=== PATIENT | female | born 1935 | race Caucasian/White ===

== ENCOUNTER 2020-07-05 10:51 | Inpatient (IN) | payer MEDICARE ==
[~2020-07-05] VITALS: Ht 162.6 cm; Wt 61.3 kg
--- NOTE | 2020-07-05 11:28 | NUR ---
O2 saturationg dropped to high 80's while on home O2 rate. Pt placed on 4L NC, 95% at this time.
[2020-07-05 11:46] LABS: ABG HCO3 47.1 mmol/L (22.0-26.0); ABG OXYGEN SATURATION 95.9 % (94-97); ABG PCO2 (T) 96.1 mmHg (32.0-45.0); ABG PO2 (T) 84.1 mmHg (75.0-100.0); ALLEN'S TEST POSITIVE; FCOHb 0.7 % (0.0-3.9); FLOW 4 L/min; FMetHb 0.1 % (0.0-1.5); FO2Hb 95.1 % (94-97)
[2020-07-05 11:49] LABS: BASOPHILS % (AUTO) 0.3 % (0-1); EOSINOPHILS % (AUTO) 0.1 % (0-6); HEMATOCRIT 30.9 % (35.0-45.0); LYMPHOCYTES # (AUTO) 0.6 X10'3 (1.1-4.8); LYMPHOCYTES % (AUTO) 9.6 % (21-51); MEAN CORPUSCULAR HEMOGLOBIN 31.3 PG (27.0-31.0); MEAN CORPUSCULAR HGB CONC 32.5 g/dL (33.0-36.5); MEAN CORPUSCULAR VOLUME 96.4 FL (78-98); MEAN PLATELET VOLUME 6.9 FL (7.4-10.4); MONOCYTES # (AUTO) 0.5 X10'3 (0-0.9); MONOCYTES % (AUTO) 8.3 % (2-12); NEUTROPHILS # (AUTO) 4.8 X10'3 (1.8-7.7); NEUTROPHILS % (AUTO) 81.7 % (42-75); PLATELET COUNT 178 X10'3 (140-440); RED BLOOD COUNT 3.21 X10'6 (4.20-5.60); RED CELL DISTRIBUTION WIDTH 13.1 % (11.5-14.5); WHITE BLOOD COUNT 5.9 X10'3 (4.5-11.0)
[2020-07-05 12:48] LABS: ALANINE AMINOTRANSFERASE 77 U/L (12-78); ALBUMIN 3.1 G/DL (3.4-5.0); ALKALINE PHOSPHATASE 128 IU/L (46-116); ANION GAP 0 (8-16); ASPARTATE AMINO TRANSFERASE 24 U/L (10-37); BILIRUBIN,TOTAL 0.5 MG/DL (0.1-1.0); BLOOD UREA NITROGEN 51 MG/DL (7-18); BUN/CREATININE RATIO 27.9 (6.6-38.0); CALCIUM 8.6 MG/DL (8.5-10.1); CHLORIDE 98 MMOL/L (99-107); CREATININE 1.83 MG/DL (0.40-0.90); GLUCOSE 148 MG/DL (70-104); POTASSIUM 5.5 MMOL/L (3.5-5.1); SODIUM 141 MMOL/L (135-145); TOTAL PROTEIN 6.3 G/DL (6.4-8.2); eGFR 26 ML/MIN
[2020-07-05 12:52] LABS: TOTAL CARBON DIOXIDE 43.1 MMOL/L (24-32)
[2020-07-05] MEDS ORDERED: furosemide 10 MG/1 ML 10ml inj IV ONE (13:45)
[2020-07-05 14:45] LABS: ABG BASE EXCESS 18.7 mmol/L (-2.0-2.0); ABG HCO3 46.1 mmol/L (22.0-26.0); ABG OXYGEN SATURATION 93.7 % (94-97); ABG PCO2 (T) 70.6 mmHg (32.0-45.0); ABG PO2 (T) 65.9 mmHg (75.0-100.0); ALLEN'S TEST POSITIVE; FCOHb 0.6 % (0.0-3.9); FMetHb 0.1 % (0.0-1.5); TOTAL HEMOGLOBIN 10.8 G/dl (12.0-16.0)
[2020-07-05] MEDS ORDERED: magnesium 2GM in 50ml NS 50 ML IV PRN (15:40)
[2020-07-05] MEDS ORDERED: ondansetron/PF 4mg/2ml inj IV PRN (15:40)
[2020-07-05] MEDS ORDERED: morphine 2 MG/ML inj. syringe IV PRN (15:40)
[2020-07-05] MEDS ORDERED: magnesium hydroxide 30ml (MOM) UD suspension PO PRN (15:40)
[2020-07-05] MEDS ORDERED: acetaminophen 325mg tablet PO PRN ×2 (15:40)
[2020-07-05] MEDS ORDERED: potassium Cl 20 mEq SR tablet PO PRN ×2 (15:40)
[2020-07-05] MEDS ORDERED: magnesium Cl slow-release 64mg tablet PO PRN (15:40)
[2020-07-05] MEDS ORDERED: mag hydrox/Alum hydrox/simeth 30ml oral suspension PO PRN (15:40)
[2020-07-05] MEDS ORDERED: potassium CL 10mEq/100ml bag 100 ML IV PRN ×2 (15:40)
[2020-07-05] MEDS ORDERED: magnesium 4gm in 100ml NS 100 ML IV PRN (15:40)
[2020-07-05 16:23] LABS: LACTATE DEHYDROGENASE 268 U/L (81-234)
[2020-07-05] MEDS ORDERED: ATOR-2 PO (17:21)
[2020-07-05] MEDS ORDERED: LACT10SO PO (17:21)
[2020-07-05] MEDS ORDERED: DOCU-267 PO (17:21)
[2020-07-05] MEDS ORDERED: APIX5TAB3 PO (17:21)
[2020-07-05] MEDS ORDERED: VORT5TAB PO (17:21)
[2020-07-05] MEDS ORDERED: FURO40TA4 PO (17:21)
[2020-07-05] MEDS ORDERED: MIRT30TA8 PO (17:21)
[2020-07-05] MEDS ORDERED: ALEN70TA80 PO (17:21)
[2020-07-05] MEDS ORDERED: PANT40TA54 PO (17:21)
[2020-07-05] MEDS ORDERED: LEVO15TA5 PO (17:33)
[2020-07-05] MEDS ORDERED: ASPI-611 PO (17:33)
[2020-07-05] MEDS ORDERED: AMIO200T61 PO (17:33)
[2020-07-05] MEDS ORDERED: LACTC PO (17:33)
[2020-07-05] MEDS ORDERED: CALC200T PO (17:33)
[2020-07-05] MEDS ORDERED: POTA20TA19 PO (17:33)
[2020-07-05] MEDS ORDERED: MELA10TA PO (17:33)
--- NOTE | 2020-07-05 17:52 | NUR ---
Patient in room PCU 3027. I have received report from Amarilis MCKENZIE and had the opportunity to ask questions and assume patient care. Patient alert and oriented to room. Bed locked and lowered. Call light within reach. Four person transfer to bed. MRSA swab collected. First set of vitals done. Patient resting comfortably, will continue to monitor.
[2020-07-05 18:00] VITALS: BP 158/73
--- NOTE | 2020-07-05 18:00 | NUR ---
Patient in room PCU 3027. I have received report from Verito MCKENZIE and had the opportunity to ask questions and assume patient care.
--- NOTE | 2020-07-05 18:11 | NUR ---
Problems reprioritized. Patient report given, questions answered & plan of care reviewed with Libra MCKENZIE and Grace MCKENZIE.
--- NOTE | 2020-07-05 18:14 | NUR ---
[place] Medication Administration: For this medication-pass time frame, all medication were reviewed, dispensed, administered and documented per hospital policy by MAGALY Xavier.
--- NOTE | 2020-07-05 18:14 | NUR ---
[place]rient[place] documentation: I have reviewed and agree with all interventions, assessments performed and documented by MAGALY Xavier.
[2020-07-05] MEDS: amiodarone 200mg tablet PO SCH (19:30)
[2020-07-05] MEDS: albuterol 2.5 MG/3 ML nebule NEB SCH ×2 (19:45→23:28)
[2020-07-05] MEDS: K and/or MAG REPLACEMENT MC SCH (20:00)
--- NOTE | 2020-07-05 20:00 | NUR ---
Non Administered Amiodarone Patient stated that she doesn't know what she has taken for medications today and to call her son to find out. Son, Tono, was called about the medications she took today and he stated "She has already taken her Amiodarone, she will still need her other night time medications." Amiodarone was not given.
[2020-07-05] MEDS: furosemide 40mg/4ml inj IV SCH (20:04)
[2020-07-05] MEDS: atorvastatin 20mg tablet PO SCH (20:16)
[2020-07-05] MEDS: Melatonin 3mg tablet PO SCH (20:16)
--- NOTE | 2020-07-05 20:48 | NUR ---
Bipap order request via page PAGER ID: [phone] MESSAGE: [phone] Any Alan, Has Bipap orders for ER but not for our unit. Can we please get orders for her? Libra Fair RN #[id number]
[2020-07-05 22:00] VITALS: BP 113/77
[2020-07-06] VITALS (7 sets, daily range): BP systolic 125–153; BP diastolic 65–96
--- NOTE | 2020-07-06 02:22 | NUR ---
page sent earlier to Baldev, hospitalist changed after start of shift, resent to Long PAGER ID: [phone] MESSAGE: [phone] Any Alan, patient has Bipap orders for ER but not for our unit. Can we please get orders for her? Thank you, Libra Fair, RN #[id number] Long responded and approved orders.
[2020-07-06] MEDS: albuterol 2.5 MG/3 ML nebule NEB SCH ×5 (04:09→20:29)
[2020-07-06 04:55] LABS: BASOPHILS % (AUTO) 0.3 % (0-1); EOSINOPHILS % (AUTO) 0.3 % (0-6); HEMATOCRIT 29.9 % (35.0-45.0); HEMOGLOBIN 9.8 g/dl (12.0-16.0); LYMPHOCYTES # (AUTO) 0.6 X10'3 (1.1-4.8); LYMPHOCYTES % (AUTO) 10.7 % (21-51); MEAN CORPUSCULAR HEMOGLOBIN 31.1 PG (27.0-31.0); MEAN CORPUSCULAR HGB CONC 32.7 g/dL (33.0-36.5); MEAN PLATELET VOLUME 6.5 FL (7.4-10.4); MONOCYTES # (AUTO) 0.6 X10'3 (0-0.9); MONOCYTES % (AUTO) 10.8 % (2-12); NEUTROPHILS # (AUTO) 4.5 X10'3 (1.8-7.7); NEUTROPHILS % (AUTO) 77.9 % (42-75); PLATELET COUNT 183 X10'3 (140-440); RED BLOOD COUNT 3.15 X10'6 (4.20-5.60); RED CELL DISTRIBUTION WIDTH 13.1 % (11.5-14.5); WHITE BLOOD COUNT 5.8 X10'3 (4.5-11.0)
[2020-07-06 05:07] LABS: ALANINE AMINOTRANSFERASE 68 U/L (12-78); ALBUMIN 2.9 G/DL (3.4-5.0); ALKALINE PHOSPHATASE 115 IU/L (46-116); ASPARTATE AMINO TRANSFERASE 21 U/L (10-37); BILIRUBIN,TOTAL 0.6 MG/DL (0.1-1.0); BLOOD UREA NITROGEN 47 MG/DL (7-18); BUN/CREATININE RATIO 26.9 (6.6-38.0); CALCIUM 8.5 MG/DL (8.5-10.1); CHLORIDE 100 MMOL/L (99-107); CREATININE 1.75 MG/DL (0.40-0.90); GLUCOSE 92 MG/DL (70-104); MAGNESIUM 2.3 MG/DL (1.5-2.4); POTASSIUM 4.1 MMOL/L (3.5-5.1); SODIUM 143 MMOL/L (135-145); TOTAL PROTEIN 5.8 G/DL (6.4-8.2); eGFR 28 ML/MIN
[2020-07-06 05:24] LABS: ANION GAP -2 (8-16)
[2020-07-06 05:26] LABS: TOTAL CARBON DIOXIDE 44.6 MMOL/L (24-32)
--- NOTE | 2020-07-06 05:28 | NUR ---
Critical CO2 44.6 PAGER ID: [phone] MESSAGE: [phone] Any Alan: Critical CO2 44.6. yesterday was 43.1 Grace MCKENZIE [phone]
--- NOTE | 2020-07-06 06:00 | NUR ---
[place]rientee documentation: I have reviewed and agree with all interventions, assessments performed and documented by MAGALY Smyth.
--- NOTE | 2020-07-06 06:28 | NUR ---
Problems reprioritized. Patient report given, questions answered & plan of care reviewed with MAGALY Sellers. Patient awake and oriented during report.
--- NOTE | 2020-07-06 06:38 | NUR ---
Problems reprioritized. Patient report given, questions answered & plan of care reviewed with Verito MCKENZIE.
--- NOTE | 2020-07-06 07:08 | NUR ---
Patient in room PCU 3027. I have received report from Nahomy MCKENZIE and had the opportunity to ask questions and assume patient care.
[2020-07-06] MEDS: K and/or MAG REPLACEMENT MC SCH ×2 (08:00→20:00)
[2020-07-06] MEDS: CefTRIAXone 2gm/D5W 50ml BAG 50 ML IV SCH (08:39)
[2020-07-06] MEDS: voritoxetine HBr tablet 5 MG TABLET PO SCH (08:39)
[2020-07-06] MEDS: lactobacillus rhamnosus 10,000 MMU CELLS/CAPSULE PO SCH (08:40)
[2020-07-06] MEDS: pantoprazole 40mg Tablet.DR PO SCH (08:40)
[2020-07-06] MEDS: potassium Cl 20 mEq SR tablet PO SCH (08:40)
[2020-07-06] MEDS: amiodarone 200mg tablet PO SCH (08:40)
[2020-07-06] MEDS: furosemide 40mg/4ml inj IV SCH ×2 (08:40→19:57)
[2020-07-06] MEDS: lactulose 20gm/30ml cup PO SCH (08:41)
--- NOTE | 2020-07-06 09:50 | NUR ---
Dr. carolina at bedside with patient and nurse. New orders to have BSS and continue to have thoracentesis and then CT scan to see if mass is there and then further studies and regiment will be assessed. Code status will be discussed with patients bernice Power MD will be honoring the POLST which is No chest compressions. Will continue to monitor.
--- NOTE | 2020-07-06 11:23 | NUR ---
Page Speech Therapy Re: Any Alan RM 7154M. Pt needing BSS Please and Thank you. Verito MCKENZIE [phone]
--- NOTE | 2020-07-06 13:34 | NUR ---
Consult: Pt previously admitted at [facility] for SOB 3 weeks ago, now admitted at [facility] for worsening SOB. Hx of dementia, A/O x 4. POWDER COAT PAINTER BSS recommends mechanical chopped food and thin liquids. RD internal audit senior manager met with pt at bedside, pt reports poor appetite r/t difficulty breathing. Reports ubw 108 and lost 5 lbs within the last year, current wt 123. Spoke with [facility] RD reporting varying wts 108-120. PO intake this lunch 50% starch, 75% protein; meeting needs. Noted bilateral foot edema 2+ likely r/t CHF. Pt currently lacks a minimum of two criteria for malnutrition. Will continue to monitor for nutrition needs. Addendum: 07/06/20 at [address] Amended: Links added. Addendum: 07/06/20 at [address] RD agree with note
--- NOTE | 2020-07-06 15:15 | NUR ---
Patient has chest tube on right side. Patient tolerated well. Will continue to monitor.
[2020-07-06] MEDS ORDERED: ondansetron 4mg rapidly disintigrating tab PO PRN (15:25)
--- NOTE | 2020-07-06 16:05 | NUR ---
Checked chest tube on patient, output was 1400 bloody fluid. I clamped tube at 1605 and will unclamp at 1805 and reassess drainage. IR Magdalene winston, was contacted and instructed to clamp for an hour and then release. If another 1000 come out to contact IR fire protection engineer and notify KARTIK. Will continue to monitor,
[2020-07-06 16:06] LABS: PLEURAL FLUID PH 7.394 (7.63-7.65)
[2020-07-06 16:07] LABS: BFSOURCE RIGHT PLEURAL FLD; GLUCOSE,BODY FLUID 161 MG/DL; LDH,BODY FLUID 166 U/L; TOTAL PROTEIN,BODY FLUID 2.6 G/DL
[2020-07-06 16:36] LABS: BFAPPEAR BLOODY; LYMPHOCYTES,BODY FLUID 8 %; MONOCYTES,BODY FLUID 25 %; NEUTROPHILS,BODY FLUID 67 %
[2020-07-06 16:37] LABS: BF RBC COUNT 762500 /CU MM; BF WBC COUNT 5000 /CU MM (0-1000); BFCOLOR RED; BFVOLUME 33 ML
--- NOTE | 2020-07-06 17:04 | NUR ---
Unclamped tubing, will continue to monitor output.
--- NOTE | 2020-07-06 18:00 | NUR ---
Patient in room PCU 3027. I have received report from Verito MCKENZIE and had the opportunity to ask questions and assume patient care.
--- NOTE | 2020-07-06 18:21 | NUR ---
Problems reprioritized. Patient report given, questions answered & plan of care reviewed with Nahomy MCKENZIE.
[2020-07-06] MEDS: atorvastatin 20mg tablet PO SCH (19:57)
[2020-07-06] MEDS: apixaban 2.5mg tablet PO SCH (19:58)
[2020-07-06] MEDS: Melatonin 3mg tablet PO SCH (19:58)
--- NOTE | 2020-07-06 22:15 | NUR ---
Patient in room U 3027. I have received report from Verito De Paz RN and had the opportunity to ask questions and assume patient care. Patient awake and alert during report.
[2020-07-07] MEDS: albuterol 2.5 MG/3 ML nebule NEB SCH ×7 (00:01→23:56)
[2020-07-07 02:00] VITALS: BP 154/78
[2020-07-07 05:59] LABS: BASOPHILS % (AUTO) 0.2 % (0-1); EOSINOPHILS % (AUTO) 0 % (0-6); HEMATOCRIT 30.8 % (35.0-45.0); HEMOGLOBIN 10.1 g/dl (12.0-16.0); LYMPHOCYTES # (AUTO) 0.8 X10'3 (1.1-4.8); LYMPHOCYTES % (AUTO) 11.7 % (21-51); MEAN CORPUSCULAR HGB CONC 32.7 g/dL (33.0-36.5); MEAN CORPUSCULAR VOLUME 94.7 FL (78-98); MEAN PLATELET VOLUME 6.7 FL (7.4-10.4); MONOCYTES # (AUTO) 0.7 X10'3 (0-0.9); MONOCYTES % (AUTO) 10.9 % (2-12); NEUTROPHILS # (AUTO) 5.1 X10'3 (1.8-7.7); NEUTROPHILS % (AUTO) 77.2 % (42-75); PLATELET COUNT 165 X10'3 (140-440); RED BLOOD COUNT 3.26 X10'6 (4.20-5.60); RED CELL DISTRIBUTION WIDTH 12.7 % (11.5-14.5); WHITE BLOOD COUNT 6.6 X10'3 (4.5-11.0)
[2020-07-07 06:18] LABS: ALANINE AMINOTRANSFERASE 48 U/L (12-78); ALBUMIN 2.5 G/DL (3.4-5.0); ALBUMIN/GLOBULIN RATIO 0.9 (1.1-1.5); ALKALINE PHOSPHATASE 94 IU/L (46-116); ASPARTATE AMINO TRANSFERASE 15 U/L (10-37); BILIRUBIN,TOTAL 0.5 MG/DL (0.1-1.0); BLOOD UREA NITROGEN 35 MG/DL (7-18); CALCIUM 7.9 MG/DL (8.5-10.1); CHLORIDE 99 MMOL/L (99-107); CREATININE 1.59 MG/DL (0.40-0.90); GLUCOSE 109 MG/DL (70-104); MAGNESIUM 1.9 MG/DL (1.5-2.4); POTASSIUM 3.6 MMOL/L (3.5-5.1); SODIUM 141 MMOL/L (135-145); TOTAL PROTEIN 5.2 G/DL (6.4-8.2); eGFR 31 ML/MIN
--- NOTE | 2020-07-07 06:30 | NUR ---
Patient in room PCU 3027. I have received report from Nahomy MCKENZIE and had the opportunity to ask questions and assume patient care.
--- NOTE | 2020-07-07 06:33 | NUR ---
[place]rientee documentation: I have reviewed and agree with all interventions, assessments performed and documented by MAGALY Smyth.
--- NOTE | 2020-07-07 06:33 | NUR ---
Problems reprioritized. Patient report given, questions answered & plan of care reviewed with Verito MCKENZIE.
[2020-07-07 06:53] LABS: ANION GAP -3 (8-16)
[2020-07-07 06:56] LABS: TOTAL CARBON DIOXIDE 45.4 MMOL/L (24-32)
[2020-07-07 07:00] VITALS: BP 168/81
--- NOTE | 2020-07-07 07:26 | NUR ---
Paged Magu promotional table spacer PAGER ID: [phone] MESSAGE: Re: Any Alan 3027A FYI CO2 critical 45.4 from yesterday 44.6.Thank you Verito MCKENZIE [phone]
[2020-07-07] MEDS: furosemide 40mg/4ml inj IV SCH ×2 (07:40→19:39)
[2020-07-07] MEDS: voritoxetine HBr tablet 5 MG TABLET PO SCH (07:40)
[2020-07-07] MEDS: lactulose 20gm/30ml cup PO SCH (07:42)
[2020-07-07] MEDS: amiodarone 200mg tablet PO SCH (07:42)
[2020-07-07] MEDS: potassium Cl 20 mEq SR tablet PO SCH (07:42)
[2020-07-07] MEDS: pantoprazole 40mg Tablet.DR PO SCH (07:42)
[2020-07-07] MEDS: apixaban 2.5mg tablet PO SCH ×2 (07:42→19:40)
[2020-07-07] MEDS: lactobacillus rhamnosus 10,000 MMU CELLS/CAPSULE PO SCH (07:42)
[2020-07-07] MEDS: CefTRIAXone 2gm/D5W 50ml BAG 50 ML IV SCH (07:43)
[2020-07-07] MEDS: K and/or MAG REPLACEMENT MC SCH ×2 (08:00→20:00)
[2020-07-07 11:00] VITALS: BP 155/79
--- NOTE | 2020-07-07 13:02 | NUR ---
Dr. Jenkins at bedside with patient and nurse. New order to keep K 4.0 and above and Mg 2.0 and above. Plan of care is to implement the continuing draining of chest tube, get Chest CT and schedule biopsy.
[2020-07-07] MEDS: HYDROcodone/acetaminophen 5mg/325mg tablet PO PRN ×2 (13:46→19:38)
[2020-07-07 17:00] VITALS: BP 121/65
[2020-07-07 18:00] VITALS: BP 153/75
--- NOTE | 2020-07-07 18:00 | NUR ---
Patient in room PCU 3027. I have received report from Verito MCKENZIE and had the opportunity to ask questions and assume patient care.
--- NOTE | 2020-07-07 18:04 | NUR ---
Problems reprioritized. Patient report given, questions answered & plan of care reviewed with alton MCKENZIE .
[2020-07-07] MEDS: Melatonin 3mg tablet PO SCH (19:39)
[2020-07-07] MEDS: atorvastatin 20mg tablet PO SCH (19:39)
[2020-07-07 22:00] VITALS: BP 123/67
[2020-07-08 02:00] VITALS: BP 132/62
[2020-07-08] MEDS: HYDROcodone/acetaminophen 5mg/325mg tablet PO PRN ×2 (03:47→19:00)
[2020-07-08] MEDS: albuterol 2.5 MG/3 ML nebule NEB SCH ×5 (04:32→19:18)
--- NOTE | 2020-07-08 05:17 | NUR ---
[place]rientee documentation: I have reviewed and agree with all interventions, assessments performed and documented by MAGALY Smyth.
[2020-07-08 06:19] LABS: BASOPHILS % (AUTO) 0.2 % (0-1); EOSINOPHILS % (AUTO) 0.2 % (0-6); HEMATOCRIT 31.9 % (35.0-45.0); HEMOGLOBIN 10.6 g/dl (12.0-16.0); LYMPHOCYTES # (AUTO) 0.7 X10'3 (1.1-4.8); LYMPHOCYTES % (AUTO) 11.4 % (21-51); MEAN CORPUSCULAR HEMOGLOBIN 31.8 PG (27.0-31.0); MEAN CORPUSCULAR HGB CONC 33.3 g/dL (33.0-36.5); MEAN CORPUSCULAR VOLUME 95.4 FL (78-98); MEAN PLATELET VOLUME 6.4 FL (7.4-10.4); MONOCYTES # (AUTO) 0.7 X10'3 (0-0.9); MONOCYTES % (AUTO) 11.9 % (2-12); NEUTROPHILS # (AUTO) 4.7 X10'3 (1.8-7.7); NEUTROPHILS % (AUTO) 76.3 % (42-75); PLATELET COUNT 159 X10'3 (140-440); RED BLOOD COUNT 3.34 X10'6 (4.20-5.60); RED CELL DISTRIBUTION WIDTH 12.7 % (11.5-14.5); WHITE BLOOD COUNT 6.2 X10'3 (4.5-11.0)
--- NOTE | 2020-07-08 06:27 | NUR ---
[place]rientee documentation: I have reviewed and agree with all interventions, assessments performed and documented by MAGALY Smyth.
--- NOTE | 2020-07-08 06:27 | NUR ---
Problems reprioritized. Patient report given, questions answered & plan of care reviewed with Ester MCKENZIE.
--- NOTE | 2020-07-08 06:32 | NUR ---
Problems reprioritized. Patient report given, questions answered & plan of care reviewed with MAGALY Gonzalez. Patient asleep in no distress during report.
[2020-07-08 06:35] LABS: ALANINE AMINOTRANSFERASE 42 U/L (12-78); ALBUMIN 2.5 G/DL (3.4-5.0); ALBUMIN/GLOBULIN RATIO 0.8 (1.1-1.5); ALKALINE PHOSPHATASE 89 IU/L (46-116); ANION GAP -2 (8-16); ASPARTATE AMINO TRANSFERASE 20 U/L (10-37); BILIRUBIN,TOTAL 0.5 MG/DL (0.1-1.0); BLOOD UREA NITROGEN 28 MG/DL (7-18); CALCIUM 8.1 MG/DL (8.5-10.1); CHLORIDE 99 MMOL/L (99-107); CREATININE 1.47 MG/DL (0.40-0.90); GLUCOSE 103 MG/DL (70-104); MAGNESIUM 2.1 MG/DL (1.5-2.4); POTASSIUM 4.5 MMOL/L (3.5-5.1); SODIUM 141 MMOL/L (135-145); TOTAL PROTEIN 5.5 G/DL (6.4-8.2); eGFR 34 ML/MIN
[2020-07-08 06:39] LABS: TOTAL CARBON DIOXIDE 44.2 MMOL/L (24-32)
--- NOTE | 2020-07-08 06:46 | NUR ---
PAGER ID: [phone] MESSAGE: [id number] Waqas Agarwal - Critical CO2 of 44.2, down from prior day. Lisa MCKENZIE [phone]
[2020-07-08 07:00] VITALS: BP 115/68
--- NOTE | 2020-07-08 07:10 | NUR ---
Patient in room PCU 3027. I have received report from Nahomy MCKENZIE and Libra MCKENZIE and had the opportunity to ask questions and assume patient care.
[2020-07-08] MEDS: K and/or MAG REPLACEMENT MC SCH ×2 (08:00→19:01)
[2020-07-08] MEDS: pantoprazole 40mg Tablet.DR PO SCH (08:30)
[2020-07-08] MEDS: furosemide 40mg/4ml inj IV SCH ×2 (08:30→18:59)
[2020-07-08] MEDS: lactobacillus rhamnosus 10,000 MMU CELLS/CAPSULE PO SCH ×2 (08:30→18:59)
[2020-07-08] MEDS: voritoxetine HBr tablet 5 MG TABLET PO SCH (08:30)
[2020-07-08] MEDS: potassium Cl 20 mEq SR tablet PO SCH (08:30)
[2020-07-08] MEDS: lactulose 20gm/30ml cup PO SCH (08:30)
[2020-07-08] MEDS: apixaban 2.5mg tablet PO SCH ×2 (08:31→18:59)
[2020-07-08] MEDS: amiodarone 200mg tablet PO SCH (08:31)
[2020-07-08] MEDS: CefTRIAXone 2gm/D5W 50ml BAG 50 ML IV SCH (08:31)
[2020-07-08 11:00] VITALS: BP_SYST 109; BP_SYST 88; BP_DIAS 70; BP_DIAS 74
[2020-07-08 15:00] VITALS: BP 134/74
[2020-07-08 18:00] VITALS: BP 152/87
--- NOTE | 2020-07-08 18:00 | NUR ---
Patient in room PCU 3027. I have received report from Ester MCKENZIE and had the opportunity to ask questions and assume patient care.
--- NOTE | 2020-07-08 18:13 | NUR ---
Problems reprioritized. Patient report given, questions answered & plan of care reviewed with Nahomy MCKENZIE. Pt. is eating dinner, offers no complaints and in good spirits.
[2020-07-08] MEDS: Melatonin 3mg tablet PO SCH (19:00)
[2020-07-08] MEDS: atorvastatin 20mg tablet PO SCH (19:01)
[2020-07-08 22:00] VITALS: BP 137/85
[2020-07-09] VITALS (7 sets, daily range): BP systolic 83–158; BP diastolic 45–87
[2020-07-09] MEDS: albuterol 2.5 MG/3 ML nebule NEB SCH ×7 (00:13→23:54)
[2020-07-09 06:26] LABS: BASOPHILS % (AUTO) 0.2 % (0-1); EOSINOPHILS % (AUTO) 0.2 % (0-6); HEMATOCRIT 31.4 % (35.0-45.0); HEMOGLOBIN 10.4 g/dl (12.0-16.0); LYMPHOCYTES # (AUTO) 0.7 X10'3 (1.1-4.8); LYMPHOCYTES % (AUTO) 8.5 % (21-51); MEAN CORPUSCULAR HEMOGLOBIN 31.4 PG (27.0-31.0); MEAN CORPUSCULAR HGB CONC 33.3 g/dL (33.0-36.5); MEAN CORPUSCULAR VOLUME 94.5 FL (78-98); MEAN PLATELET VOLUME 6.5 FL (7.4-10.4); MONOCYTES % (AUTO) 11.8 % (2-12); NEUTROPHILS # (AUTO) 6.8 X10'3 (1.8-7.7); NEUTROPHILS % (AUTO) 79.3 % (42-75); PLATELET COUNT 145 X10'3 (140-440); RED BLOOD COUNT 3.32 X10'6 (4.20-5.60); WHITE BLOOD COUNT 8.6 X10'3 (4.5-11.0)
--- NOTE | 2020-07-09 06:37 | NUR ---
Patient in room PCU 3027. I have received report from Nahomy MCKENZIE and had the opportunity to ask questions and assume patient care.
[2020-07-09 06:40] LABS: ALANINE AMINOTRANSFERASE 39 U/L (12-78); ALBUMIN 2.3 G/DL (3.4-5.0); ALBUMIN/GLOBULIN RATIO 0.7 (1.1-1.5); ALKALINE PHOSPHATASE 88 IU/L (46-116); ANION GAP -5 (8-16); ASPARTATE AMINO TRANSFERASE 15 U/L (10-37); BILIRUBIN,TOTAL 0.5 MG/DL (0.1-1.0); BLOOD UREA NITROGEN 25 MG/DL (7-18); BUN/CREATININE RATIO 16.3 (6.6-38.0); CALCIUM 8.2 MG/DL (8.5-10.1); CHLORIDE 98 MMOL/L (99-107); CREATININE 1.53 MG/DL (0.40-0.90); GLUCOSE 104 MG/DL (70-104); POTASSIUM 4.6 MMOL/L (3.5-5.1); SODIUM 137 MMOL/L (135-145); TOTAL PROTEIN 5.5 G/DL (6.4-8.2); eGFR 32 ML/MIN
--- NOTE | 2020-07-09 06:45 | NUR ---
Problems reprioritized. Patient report given, questions answered & plan of care reviewed with Bhavna MCKENZIE.
[2020-07-09 07:26] LABS: TOTAL CARBON DIOXIDE 43.9 MMOL/L (24-32)
[2020-07-09] MEDS: K and/or MAG REPLACEMENT MC SCH ×2 (08:00→20:00)
[2020-07-09] MEDS: CefTRIAXone 2gm/D5W 50ml BAG 50 ML IV SCH (08:39)
[2020-07-09] MEDS: apixaban 2.5mg tablet PO SCH ×2 (08:39→19:53)
[2020-07-09] MEDS: potassium Cl 20 mEq SR tablet PO SCH (08:39)
[2020-07-09] MEDS: pantoprazole 40mg Tablet.DR PO SCH (08:39)
[2020-07-09] MEDS: lactulose 20gm/30ml cup PO SCH (08:39)
[2020-07-09] MEDS: lactobacillus rhamnosus 10,000 MMU CELLS/CAPSULE PO SCH (08:39)
[2020-07-09] MEDS: voritoxetine HBr tablet 5 MG TABLET PO SCH (08:49)
[2020-07-09] MEDS: amiodarone 200mg tablet PO SCH (08:58)
[2020-07-09] MEDS: furosemide 40mg/4ml inj IV SCH ×2 (08:58→19:53)
--- NOTE | 2020-07-09 11:28 | NUR ---
Patient seen by Dr vicente . orders continue. maalox given for indigestion. will continue to monitor.
--- NOTE | 2020-07-09 18:12 | NUR ---
Problems reprioritized. Patient report given, questions answered & plan of care reviewed with Nahomy MCKENZIE.
[2020-07-09] MEDS: atorvastatin 20mg tablet PO SCH (19:53)
[2020-07-09] MEDS: HYDROcodone/acetaminophen 5mg/325mg tablet PO PRN (19:54)
[2020-07-09] MEDS: Melatonin 3mg tablet PO SCH (19:54)
[2020-07-10] VITALS (7 sets, daily range): BP systolic 106–158; BP diastolic 74–91
[2020-07-10 05:49] LABS: ALANINE AMINOTRANSFERASE 34 U/L (12-78); ALBUMIN 2.2 G/DL (3.4-5.0); ALBUMIN/GLOBULIN RATIO 0.7 (1.1-1.5); ALKALINE PHOSPHATASE 86 IU/L (46-116); ANION GAP -4 (8-16); ASPARTATE AMINO TRANSFERASE 12 U/L (10-37); BASOPHILS % (AUTO) 0.1 % (0-1); BILIRUBIN,TOTAL 0.5 MG/DL (0.1-1.0); BLOOD UREA NITROGEN 26 MG/DL (7-18); BUN/CREATININE RATIO 15.3 (6.6-38.0); CALCIUM 8.2 MG/DL (8.5-10.1); CHLORIDE 97 MMOL/L (99-107); EOSINOPHILS % (AUTO) 0.1 % (0-6); GLUCOSE 105 MG/DL (70-104); HEMATOCRIT 29.7 % (35.0-45.0); HEMOGLOBIN 10.1 g/dl (12.0-16.0); LYMPHOCYTES # (AUTO) 0.6 X10'3 (1.1-4.8); LYMPHOCYTES % (AUTO) 8.7 % (21-51); MAGNESIUM 2.2 MG/DL (1.5-2.4); MEAN CORPUSCULAR HEMOGLOBIN 31.6 PG (27.0-31.0); MEAN CORPUSCULAR VOLUME 93.1 FL (78-98); MEAN PLATELET VOLUME 6.7 FL (7.4-10.4); MONOCYTES # (AUTO) 0.8 X10'3 (0-0.9); MONOCYTES % (AUTO) 11.2 % (2-12); NEUTROPHILS # (AUTO) 5.9 X10'3 (1.8-7.7); NEUTROPHILS % (AUTO) 79.9 % (42-75); PLATELET COUNT 163 X10'3 (140-440); POTASSIUM 3.9 MMOL/L (3.5-5.1); RED BLOOD COUNT 3.19 X10'6 (4.20-5.60); RED CELL DISTRIBUTION WIDTH 13.1 % (11.5-14.5); SODIUM 136 MMOL/L (135-145); TOTAL PROTEIN 5.5 G/DL (6.4-8.2); WHITE BLOOD COUNT 7.4 X10'3 (4.5-11.0); eGFR 28 ML/MIN
[2020-07-10 05:53] LABS: TOTAL CARBON DIOXIDE 43.1 MMOL/L (24-32)
[2020-07-10] MEDS: albuterol 2.5 MG/3 ML nebule NEB SCH ×6 (06:21→23:30)
--- NOTE | 2020-07-10 06:40 | NUR ---
Patient in room PCU 3027. I have received report from SALVADOR MCKENZIE and had the opportunity to ask questions and assume patient care.
[2020-07-10] MEDS: K and/or MAG REPLACEMENT MC SCH ×3 (06:53→14:50)
--- NOTE | 2020-07-10 07:05 | NUR ---
Problems reprioritized. Patient report given, questions answered & plan of care reviewed with Laura MCKENZIE.
[2020-07-10] MEDS: apixaban 2.5mg tablet PO SCH ×2 (07:12→08:21)
--- NOTE | 2020-07-10 07:12 | NUR ---
PER NOC SHIFT NURSE PT PROBABLY GOING FOR BX TODAY. CALLED [facility] TO SEE IF THEY ARE DOING PROCEDURE SHE HAS REGGIE. SPOKE WITH RN , SHE STATES POSSIBLY. WILL HOLD ELILYDIAIS.
[2020-07-10] MEDS: lactulose 20gm/30ml cup PO SCH (08:00)
[2020-07-10] MEDS: voritoxetine HBr tablet 5 MG TABLET PO SCH (08:15)
[2020-07-10] MEDS: amiodarone 200mg tablet PO SCH (08:15)
[2020-07-10] MEDS: CefTRIAXone 2gm/D5W 50ml BAG 50 ML IV SCH (08:15)
[2020-07-10] MEDS: potassium Cl 20 mEq SR tablet PO SCH ×2 (08:15→14:53)
[2020-07-10] MEDS: pantoprazole 40mg Tablet.DR PO SCH (08:15)
[2020-07-10] MEDS: furosemide 40mg/4ml inj IV SCH ×2 (08:16→20:05)
--- NOTE | 2020-07-10 08:44 | NUR ---
SPOKE TO RN FROM [facility]. PT NEEDS 4 DOSES OF ELIQUIS WITH-HELD FOR PROCEDURE (BX). CALLED HOSPITALIST AND ASKED TO HAVE IT DC'D AND RESTARTED AFTER PROCEDURE. SHE STATES, DC ELIQUIS. dC'D MED AND INFORMED CHARGE NURSE AND PATIENT.
--- NOTE | 2020-07-10 09:12 | NUR ---
0800 svn triaged by RT
--- NOTE | 2020-07-10 14:43 | NUR ---
PER DR BARCENAS PT TO BE AT 4.0 DAILY. PT IS 3.9 TODAY WILL REPLACE WITH ONE TIME 20 MEQ CHARGE AGREES.
--- NOTE | 2020-07-10 18:05 | NUR ---
Patient in room PCU 3027. I have received report from Laura MCKENZIE and had the opportunity to ask questions and assume patient care.
--- NOTE | 2020-07-10 18:28 | NUR ---
Problems reprioritized. Patient report given, questions answered & plan of care reviewed with FAREED MCKENZIE.
--- NOTE | 2020-07-10 19:16 | NUR ---
Problems reprioritized. Patient report given, questions answered & plan of care reviewed with Natalee MCKENZIE.
--- NOTE | 2020-07-10 19:19 | NUR ---
Patient in room PCU 3027. I have received report from laura MCKENZIE and had the opportunity to ask questions and assume patient care.
[2020-07-10] MEDS: Melatonin 3mg tablet PO SCH (20:05)
[2020-07-10] MEDS: atorvastatin 20mg tablet PO SCH (20:05)
--- NOTE | 2020-07-11 00:55 | NUR ---
PAGER ID: [phone] MESSAGE: Natalee quach [phone]. Any Alan in rm [id number] is complaining of not being able to sleep. Already gave melatonin and it did not help. Can I get an order for Restoril? Thank you
[2020-07-11] MEDS: temazepam 15mg capsule PO PRN ×2 (01:11→21:01)
[2020-07-11 01:57] VITALS: BP 138/95
[2020-07-11] MEDS: albuterol 2.5 MG/3 ML nebule NEB SCH ×6 (04:00→22:53)
[2020-07-11 06:00] VITALS: BP 143/89
--- NOTE | 2020-07-11 06:21 | NUR ---
Problems reprioritized. Patient report given, questions answered & plan of care reviewed with Lisa MCKENZIE.
--- NOTE | 2020-07-11 06:27 | NUR ---
Patient in room PCU 3027. I have received report from MAGALY Albright and had the opportunity to ask questions and assume patient care.
[2020-07-11] MEDS: furosemide 40mg/4ml inj IV SCH ×2 (08:50→20:57)
[2020-07-11] MEDS: amiodarone 200mg tablet PO SCH (08:51)
[2020-07-11] MEDS: CefTRIAXone 2gm/D5W 50ml BAG 50 ML IV SCH (08:51)
[2020-07-11] MEDS: voritoxetine HBr tablet 5 MG TABLET PO SCH (08:52)
[2020-07-11] MEDS: lactobacillus rhamnosus 10,000 MMU CELLS/CAPSULE PO SCH (08:52)
[2020-07-11] MEDS: pantoprazole 40mg Tablet.DR PO SCH (08:52)
[2020-07-11] MEDS: potassium Cl 20 mEq SR tablet PO SCH (08:52)
[2020-07-11 09:17] LABS: BASOPHILS % (AUTO) 0.3 % (0-1); EOSINOPHILS % (AUTO) 0.1 % (0-6); HEMATOCRIT 31.2 % (35.0-45.0); HEMOGLOBIN 10.4 g/dl (12.0-16.0); LYMPHOCYTES # (AUTO) 0.7 X10'3 (1.1-4.8); LYMPHOCYTES % (AUTO) 10.1 % (21-51); MEAN CORPUSCULAR HEMOGLOBIN 31.4 PG (27.0-31.0); MEAN CORPUSCULAR HGB CONC 33.5 g/dL (33.0-36.5); MEAN CORPUSCULAR VOLUME 93.8 FL (78-98); MEAN PLATELET VOLUME 6.3 FL (7.4-10.4); MONOCYTES # (AUTO) 0.7 X10'3 (0-0.9); MONOCYTES % (AUTO) 10.6 % (2-12); NEUTROPHILS # (AUTO) 5.1 X10'3 (1.8-7.7); NEUTROPHILS % (AUTO) 78.9 % (42-75); PLATELET COUNT 184 X10'3 (140-440); RED BLOOD COUNT 3.32 X10'6 (4.20-5.60); RED CELL DISTRIBUTION WIDTH 12.9 % (11.5-14.5); WHITE BLOOD COUNT 6.5 X10'3 (4.5-11.0)
--- NOTE | 2020-07-11 09:35 | NUR ---
PAGER ID: [phone] MESSAGE: [id number] Any Alan in a-fib that is not new but HR trends are up at 120-140's. IRVIN Gonzalez RN
[2020-07-11 09:43] LABS: ALANINE AMINOTRANSFERASE 33 U/L (12-78); ALBUMIN 2.2 G/DL (3.4-5.0); ALBUMIN/GLOBULIN RATIO 0.6 (1.1-1.5); ALKALINE PHOSPHATASE 86 IU/L (46-116); ANION GAP -2 (8-16); ASPARTATE AMINO TRANSFERASE 14 U/L (10-37); BILIRUBIN,TOTAL 0.5 MG/DL (0.1-1.0); BLOOD UREA NITROGEN 23 MG/DL (7-18); BUN/CREATININE RATIO 15.4 (6.6-38.0); CALCIUM 8.4 MG/DL (8.5-10.1); CHLORIDE 97 MMOL/L (99-107); CREATININE 1.49 MG/DL (0.40-0.90); GLUCOSE 133 MG/DL (70-104); SODIUM 138 MMOL/L (135-145); TOTAL PROTEIN 5.8 G/DL (6.4-8.2); eGFR 33 ML/MIN
[2020-07-11 09:47] LABS: TOTAL CARBON DIOXIDE 42.7 MMOL/L (24-32)
[2020-07-11 11:00] VITALS: BP 143/86
--- NOTE | 2020-07-11 12:46 | NUR ---
Initial: Pt presented to ER with worsening SOB; admitted for Afib and respiratory failure. Per MD progress note pt has lung mass and is pending biopsy. Per ENTERPRISE APPLICATION ANALYST recs on 07/09, continue mechanical chopped and thin liquids. Pt PO intake 50-75% on heart healthy diet, meeting estimated nutrient needs. Last BM 07/09. No nutrition concerns at this time, will continue to monitor. Recs: 1) Continue heart healthy diet, mechanical soft chop food per ST recs 2) Routine bowel care 3) Scaled wt per Rx Addendum: 07/11/20 at [address] Amended: Links added. Addendum: 07/11/20 at [address] I have reviewed and agree with note by Registered Private Duty Nurse. Keke Humphries RD
[2020-07-11] MEDS: HYDROcodone/acetaminophen 5mg/325mg tablet PO PRN (14:01)
[2020-07-11 15:00] VITALS: BP 151/76
--- NOTE | 2020-07-11 18:30 | NUR ---
Patient in room PCU 3027. I have received report from MAGALY Gonzalez and had the opportunity to ask questions and assume patient care. Patient resting in bed, no signs of distress. Safety measures in place, bed in low and locked position. Call light and personal items within reach. Will continue to monitor throughout shift.
--- NOTE | 2020-07-11 18:31 | NUR ---
Problems reprioritized. Patient report given, questions answered & plan of care reviewed with Miguelito MCKENZIE. Patient is sleeping comfortably in no distress.
[2020-07-11] MEDS: K and/or MAG REPLACEMENT MC SCH (20:00)
[2020-07-11] MEDS: atorvastatin 20mg tablet PO SCH (20:58)
[2020-07-11] MEDS: Melatonin 3mg tablet PO SCH (21:00)
[2020-07-11 22:00] VITALS: BP 148/89
[2020-07-12] VITALS (18 sets, daily range): BP systolic 132–164; BP diastolic 65–100
[2020-07-12] MEDS: albuterol 2.5 MG/3 ML nebule NEB SCH ×6 (03:43→23:32)
--- NOTE | 2020-07-12 04:40 | NUR ---
Paged Dr. Ball. RE: Rosanna Alan RM [id number]. Pt. in afib, rate has been in 110's to 120's, now increasing to 130's-140's, once to 168 with any movement. Miguelito [phone]
[2020-07-12] MEDS ORDERED: diltiazem 5mg/ml 5ml inj. IV ONE (05:00)
[2020-07-12] MEDS: diltiazem-NS 100mg/100ml 100 ML IV SCH ×2 (05:47→20:52)
--- NOTE | 2020-07-12 07:00 | NUR ---
Problems reprioritized. Patient report given, questions answered & plan of care reviewed with MAGALY Rosado. Patient resting in bed. Cardizem drip running at 5ml/hr. Safety measures in place, bed in low and locked position. Call light and personal items within reach. will continue to monitor for remainder of shift.
--- NOTE | 2020-07-12 07:06 | NUR ---
Patient in room PCU 3027. I have received report from Miguelito MCKENZIE and had the opportunity to ask questions and assume patient care.
[2020-07-12] MEDS: amiodarone 200mg tablet PO SCH (07:23)
[2020-07-12] MEDS: potassium Cl 20 mEq SR tablet PO SCH (07:23)
[2020-07-12] MEDS: lactobacillus rhamnosus 10,000 MMU CELLS/CAPSULE PO SCH (07:23)
[2020-07-12] MEDS: CefTRIAXone 2gm/D5W 50ml BAG 50 ML IV SCH (07:24)
[2020-07-12] MEDS: pantoprazole 40mg Tablet.DR PO SCH (07:24)
[2020-07-12] MEDS: furosemide 40mg/4ml inj IV SCH ×2 (07:24→20:52)
[2020-07-12] MEDS: voritoxetine HBr tablet 5 MG TABLET PO SCH (07:24)
[2020-07-12] MEDS: K and/or MAG REPLACEMENT MC SCH ×2 (08:00→20:00)
[2020-07-12 12:48] LABS: ALBUMIN 2.2 G/DL (3.4-5.0); ANION GAP 1 (8-16); BLOOD UREA NITROGEN 21 MG/DL (7-18); BUN/CREATININE RATIO 15.3 (6.6-38.0); CALCIUM 8.5 MG/DL (8.5-10.1); CHLORIDE 99 MMOL/L (99-107); CREATININE 1.37 MG/DL (0.40-0.90); GLUCOSE 91 MG/DL (70-104); POTASSIUM 4.1 MMOL/L (3.5-5.1); SODIUM 142 MMOL/L (135-145); eGFR 37 ML/MIN
[2020-07-12 12:49] LABS: TOTAL CARBON DIOXIDE 41.8 MMOL/L (24-32)
[2020-07-12] MEDS ORDERED: iohexol 300mg/ml 100ml inj. ONE (16:24)
--- NOTE | 2020-07-12 18:09 | NUR ---
Problems reprioritized. Patient report given, questions answered & plan of care reviewed with Ashleigh MCKENZIE.
--- NOTE | 2020-07-12 18:30 | NUR ---
Patient in room PCU 3027. I have received report from MAGALY Robles and had the opportunity to ask questions and assume patient care. Safety measures in place, bed in low and locked position. Call light and personal items within reach. Will continue to monitor throughout shift.
[2020-07-12] MEDS: temazepam 15mg capsule PO PRN (20:52)
[2020-07-12] MEDS: atorvastatin 20mg tablet PO SCH (20:53)
[2020-07-12] MEDS: Melatonin 3mg tablet PO SCH (21:00)
[2020-07-13] VITALS (14 sets, daily range): BP systolic 115–176; BP diastolic 58–89
[2020-07-13] MEDS: albuterol 2.5 MG/3 ML nebule NEB SCH ×5 (03:17→19:51)
--- NOTE | 2020-07-13 06:12 | NUR ---
Patient in room PCU 3027. I have received report from Miguelito MCKENZIE and had the opportunity to ask questions and assume patient care.
--- NOTE | 2020-07-13 06:37 | NUR ---
Problems reprioritized. Patient report given, questions answered & plan of care reviewed with MAGALY Robles. Patient resting in bed, no signs of distress. Cardizem running at 5ml/hr. Lines patent. On 2L nasal cannula. Voids in commode, no bowel movement, day shift nurse aware. VSS. Safety measures in place, bed in low and locked position. Call light and personal items within reach. Will continue to monitor for remainder of shift.
[2020-07-13] MEDS: furosemide 40mg/4ml inj IV SCH ×2 (07:32→20:18)
[2020-07-13] MEDS: K and/or MAG REPLACEMENT MC SCH ×2 (08:00→20:12)
[2020-07-13] MEDS: amiodarone 200mg tablet PO SCH (08:06)
[2020-07-13] MEDS: potassium Cl 20 mEq SR tablet PO SCH (08:06)
[2020-07-13] MEDS: pantoprazole 40mg Tablet.DR PO SCH (08:06)
[2020-07-13] MEDS: voritoxetine HBr tablet 5 MG TABLET PO SCH (08:06)
[2020-07-13] MEDS: CefTRIAXone 2gm/D5W 50ml BAG 50 ML IV SCH (08:06)
[2020-07-13] MEDS: lactobacillus rhamnosus 10,000 MMU CELLS/CAPSULE PO SCH (08:06)
--- NOTE | 2020-07-13 08:42 | NUR ---
received orders to continue daily labs of CBC and CMP per dr. vicente
--- NOTE | 2020-07-13 10:26 | NUR ---
PAGER ID: [phone] MESSAGE: [id number] Any Alan: Son Tono Alan would like for you to give him a call at your convenience ph . Thanks Margaret
[2020-07-13] MEDS: diltiazem-NS 100mg/100ml 100 ML IV SCH (14:17)
[2020-07-13 16:56] LABS: ABG BASE EXCESS 15.5 mmol/L (-2.0-2.0); ABG HCO3 41.1 mmol/L (22.0-26.0); ABG OXYGEN SATURATION 96.3 % (94-97); ABG PCO2 (T) 55.8 mmHg (32.0-45.0); ABG PO2 (T) 86.6 mmHg (75.0-100.0); FCOHb 0.3 % (0.0-3.9); FLOW 2 L/min; FMetHb 0.3 % (0.0-1.5); FO2Hb 95.7 % (94-97); TOTAL HEMOGLOBIN 10.8 G/dl (12.0-16.0)
--- NOTE | 2020-07-13 18:27 | NUR ---
Problems reprioritized. Patient report given, questions answered & plan of care reviewed with Mendez MCKENZIE.
[2020-07-13] MEDS: atorvastatin 20mg tablet PO SCH (20:18)
[2020-07-13] MEDS: temazepam 15mg capsule PO PRN (20:18)
[2020-07-13] MEDS: Melatonin 3mg tablet PO SCH (20:18)
[2020-07-14] VITALS (7 sets, daily range): BP systolic 125–145; BP diastolic 43–70
[2020-07-14] MEDS: albuterol 2.5 MG/3 ML nebule NEB SCH ×7 (03:11→23:17)
[2020-07-14 05:49] LABS: ALANINE AMINOTRANSFERASE 29 U/L (12-78); ALBUMIN 2.1 G/DL (3.4-5.0); ALBUMIN/GLOBULIN RATIO 0.6 (1.1-1.5); ALKALINE PHOSPHATASE 78 IU/L (46-116); ANION GAP -1 (8-16); ASPARTATE AMINO TRANSFERASE 19 U/L (10-37); BILIRUBIN,TOTAL 0.4 MG/DL (0.1-1.0); BLOOD UREA NITROGEN 22 MG/DL (7-18); BUN/CREATININE RATIO 14.8 (6.6-38.0); CHLORIDE 97 MMOL/L (99-107); CREATININE 1.49 MG/DL (0.40-0.90); GLUCOSE 102 MG/DL (70-104); POTASSIUM 3.8 MMOL/L (3.5-5.1); SODIUM 138 MMOL/L (135-145); TOTAL PROTEIN 5.6 G/DL (6.4-8.2); eGFR 33 ML/MIN
[2020-07-14 05:54] LABS: TOTAL CARBON DIOXIDE 41.9 MMOL/L (24-32)
--- NOTE | 2020-07-14 05:56 | NUR ---
Page Sent PAGER ID: [phone] MESSAGE: pt Raymondort [phone] in [id number] here for pleural effusions. critical CO2 of 41.9. - Mendez [phone]
[2020-07-14 06:21] LABS: BASOPHILS % (AUTO) 0.4 % (0-1); EOSINOPHILS % (AUTO) 0.1 % (0-6); HEMATOCRIT 29.3 % (35.0-45.0); HEMOGLOBIN 10.1 g/dl (12.0-16.0); LYMPHOCYTES # (AUTO) 0.7 X10'3 (1.1-4.8); LYMPHOCYTES % (AUTO) 11.2 % (21-51); MEAN CORPUSCULAR HEMOGLOBIN 31.7 PG (27.0-31.0); MEAN CORPUSCULAR HGB CONC 34.4 g/dL (33.0-36.5); MEAN CORPUSCULAR VOLUME 92.1 FL (78-98); MEAN PLATELET VOLUME 6.2 FL (7.4-10.4); MONOCYTES # (AUTO) 0.8 X10'3 (0-0.9); MONOCYTES % (AUTO) 13.6 % (2-12); NEUTROPHILS # (AUTO) 4.5 X10'3 (1.8-7.7); NEUTROPHILS % (AUTO) 74.7 % (42-75); PLATELET COUNT 221 X10'3 (140-440); RED BLOOD COUNT 3.18 X10'6 (4.20-5.60); RED CELL DISTRIBUTION WIDTH 12.9 % (11.5-14.5)
--- NOTE | 2020-07-14 06:21 | NUR ---
Problems reprioritized. Patient report given, questions answered & plan of care reviewed with Dahlia MCKENZIE.
--- NOTE | 2020-07-14 06:23 | NUR ---
Patient in room PCU 3027. I have received report from Mendez MCKENZIE and had the opportunity to ask questions and assume patient care.
--- NOTE | 2020-07-14 06:44 | NUR ---
Patient in room PCU 3027. I have received report from Mendez MCKENZIE and had the opportunity to ask questions and assume patient care.
[2020-07-14] MEDS: amiodarone 200mg tablet PO SCH (08:37)
[2020-07-14] MEDS: furosemide 40mg/4ml inj IV SCH ×2 (08:37→20:16)
[2020-07-14] MEDS: potassium Cl 20 mEq SR tablet PO SCH (08:37)
[2020-07-14] MEDS: pantoprazole 40mg Tablet.DR PO SCH (08:37)
[2020-07-14] MEDS: lactobacillus rhamnosus 10,000 MMU CELLS/CAPSULE PO SCH (08:37)
[2020-07-14] MEDS: voritoxetine HBr tablet 5 MG TABLET PO SCH (08:46)
[2020-07-14] MEDS: K and/or MAG REPLACEMENT MC SCH ×2 (08:49→20:31)
[2020-07-14] MEDS: diltiazem-NS 100mg/100ml 100 ML IV SCH (12:24)
--- NOTE | 2020-07-14 18:56 | NUR ---
Patient in room PCU 3027. I have received report from DOMENIC MCKENZIE and had the opportunity to ask questions and assume patient care.
[2020-07-14] MEDS: diltiazem 30mg tablet PO SCH (20:16)
[2020-07-14] MEDS: temazepam 15mg capsule PO PRN (20:16)
[2020-07-14] MEDS: atorvastatin 20mg tablet PO SCH (20:19)
[2020-07-14] MEDS: Melatonin 3mg tablet PO SCH (20:32)
[2020-07-15] MEDS: diltiazem 30mg tablet PO SCH ×4 (01:17→20:36)
[2020-07-15 02:00] VITALS: BP 140/77
[2020-07-15] MEDS: albuterol 2.5 MG/3 ML nebule NEB SCH ×5 (02:45→19:35)
--- NOTE | 2020-07-15 06:03 | NUR ---
Student documentation: I have reviewed and agree with all interventions, assessments performed and documented by Tali WATSON. Student Medication Administration: For this medication-pass time frame, all medication were reviewed, dispensed, administered and documented per hospital policy by Tali Guevara RN.
--- NOTE | 2020-07-15 06:24 | NUR ---
Problems reprioritized. Patient report given, questions answered & plan of care reviewed with Dahlia MCKENZIE.
[2020-07-15 06:53] LABS: BASOPHILS % (AUTO) 0.4 % (0-1); EOSINOPHILS % (AUTO) 0.1 % (0-6); HEMATOCRIT 30.6 % (35.0-45.0); HEMOGLOBIN 10.1 g/dl (12.0-16.0); LYMPHOCYTES # (AUTO) 0.6 X10'3 (1.1-4.8); LYMPHOCYTES % (AUTO) 9.5 % (21-51); MEAN CORPUSCULAR HEMOGLOBIN 30.5 PG (27.0-31.0); MEAN CORPUSCULAR HGB CONC 33.1 g/dL (33.0-36.5); MEAN PLATELET VOLUME 6.5 FL (7.4-10.4); MONOCYTES # (AUTO) 0.9 X10'3 (0-0.9); MONOCYTES % (AUTO) 12.9 % (2-12); NEUTROPHILS # (AUTO) 5.1 X10'3 (1.8-7.7); NEUTROPHILS % (AUTO) 77.1 % (42-75); PLATELET COUNT 237 X10'3 (140-440); RED BLOOD COUNT 3.32 X10'6 (4.20-5.60); RED CELL DISTRIBUTION WIDTH 13.4 % (11.5-14.5); WHITE BLOOD COUNT 6.6 X10'3 (4.5-11.0)
[2020-07-15 07:13] LABS: ALANINE AMINOTRANSFERASE 33 U/L (12-78); ALBUMIN 2.1 G/DL (3.4-5.0); ALBUMIN/GLOBULIN RATIO 0.6 (1.1-1.5); ALKALINE PHOSPHATASE 79 IU/L (46-116); ANION GAP 3 (8-16); ASPARTATE AMINO TRANSFERASE 24 U/L (10-37); BILIRUBIN,TOTAL 0.5 MG/DL (0.1-1.0); BLOOD UREA NITROGEN 20 MG/DL (7-18); BUN/CREATININE RATIO 14.7 (6.6-38.0); CALCIUM 8.1 MG/DL (8.5-10.1); CHLORIDE 99 MMOL/L (99-107); CREATININE 1.36 MG/DL (0.40-0.90); GLUCOSE 94 MG/DL (70-104); POTASSIUM 3.7 MMOL/L (3.5-5.1); SODIUM 142 MMOL/L (135-145); TOTAL CARBON DIOXIDE 39.9 MMOL/L (24-32); TOTAL PROTEIN 5.7 G/DL (6.4-8.2); eGFR 37 ML/MIN
[2020-07-15] MEDS: potassium Cl 20 mEq SR tablet PO SCH (07:59)
[2020-07-15] MEDS: lactobacillus rhamnosus 10,000 MMU CELLS/CAPSULE PO SCH (07:59)
[2020-07-15] MEDS: pantoprazole 40mg Tablet.DR PO SCH (07:59)
[2020-07-15] MEDS: amiodarone 200mg tablet PO SCH (07:59)
[2020-07-15] MEDS: furosemide 40mg/4ml inj IV SCH ×2 (07:59→20:36)
[2020-07-15] MEDS: voritoxetine HBr tablet 5 MG TABLET PO SCH (08:00)
[2020-07-15] MEDS: K and/or MAG REPLACEMENT MC SCH ×2 (08:00→20:00)
[2020-07-15] MEDS ORDERED: diltiazem 30mg tablet PO ONE (08:40)
[2020-07-15 18:00] VITALS: BP 142/83
--- NOTE | 2020-07-15 18:19 | NUR ---
Problems reprioritized. Patient report given, questions answered & plan of care reviewed with Bertha MCKENZIE.
--- NOTE | 2020-07-15 18:30 | NUR ---
Patient in room PCU 3027. I have received report from DOMENIC and had the opportunity to ask questions and assume patient care.
[2020-07-15] MEDS: atorvastatin 20mg tablet PO SCH (20:36)
[2020-07-15] MEDS: temazepam 15mg capsule PO PRN (20:36)
[2020-07-15] MEDS: Melatonin 3mg tablet PO SCH (20:43)
[2020-07-15 21:24] LABS: GLUCOSE,BODY FLUID 157 MG/DL; LDH,BODY FLUID 185 U/L
[2020-07-15 21:48] LABS: BFAPPEAR HAZY
[2020-07-15 21:49] LABS: BF RBC COUNT 5200 /CU MM; BF WBC COUNT 1100 /CU MM (0-1000); BFCOLOR OTHER; BFVOLUME 20 ML; NEUTROPHILS,BODY FLUID 2 %
[2020-07-15 21:50] LABS: LYMPHOCYTES,BODY FLUID 96 %; MONOCYTES,BODY FLUID 2 %
[2020-07-15 22:00] VITALS: BP 131/72
[2020-07-16 02:00] VITALS: BP 124/58
[2020-07-16] MEDS: albuterol 2.5 MG/3 ML nebule NEB SCH ×7 (02:12→22:56)
[2020-07-16] MEDS: diltiazem 30mg tablet PO SCH ×4 (02:58→19:55)
[2020-07-16 06:00] VITALS: BP 129/63
[2020-07-16 06:23] LABS: BASOPHILS % (AUTO) 0.4 % (0-1); EOSINOPHILS % (AUTO) 0.1 % (0-6); HEMATOCRIT 29.7 % (35.0-45.0); HEMOGLOBIN 9.9 g/dl (12.0-16.0); LYMPHOCYTES # (AUTO) 0.7 X10'3 (1.1-4.8); LYMPHOCYTES % (AUTO) 10.2 % (21-51); MEAN CORPUSCULAR HEMOGLOBIN 30.6 PG (27.0-31.0); MEAN CORPUSCULAR HGB CONC 33.4 g/dL (33.0-36.5); MEAN CORPUSCULAR VOLUME 91.6 FL (78-98); MEAN PLATELET VOLUME 6.3 FL (7.4-10.4); MONOCYTES # (AUTO) 0.6 X10'3 (0-0.9); MONOCYTES % (AUTO) 9.9 % (2-12); NEUTROPHILS # (AUTO) 5.2 X10'3 (1.8-7.7); NEUTROPHILS % (AUTO) 79.4 % (42-75); PLATELET COUNT 281 X10'3 (140-440); RED BLOOD COUNT 3.24 X10'6 (4.20-5.60); RED CELL DISTRIBUTION WIDTH 13.2 % (11.5-14.5); WHITE BLOOD COUNT 6.5 X10'3 (4.5-11.0)
--- NOTE | 2020-07-16 06:26 | NUR ---
Problems reprioritized. Patient report given, questions answered & plan of care reviewed with CATARINA.
--- NOTE | 2020-07-16 06:35 | NUR ---
Patient in room PCU 3027. I have received report from Clara MCKENZIE and had the opportunity to ask questions and assume patient care. Patient asleep in bed and resting. All immediate needs met at this time.
[2020-07-16 06:44] LABS: ALANINE AMINOTRANSFERASE 34 U/L (12-78); ALBUMIN 2.1 G/DL (3.4-5.0); ALBUMIN/GLOBULIN RATIO 0.6 (1.1-1.5); ALKALINE PHOSPHATASE 79 IU/L (46-116); ANION GAP 2 (8-16); ASPARTATE AMINO TRANSFERASE 21 U/L (10-37); BILIRUBIN,TOTAL 0.5 MG/DL (0.1-1.0); BLOOD UREA NITROGEN 21 MG/DL (7-18); BUN/CREATININE RATIO 13.3 (6.6-38.0); CALCIUM 8.1 MG/DL (8.5-10.1); CHLORIDE 98 MMOL/L (99-107); CREATININE 1.58 MG/DL (0.40-0.90); GLUCOSE 110 MG/DL (70-104); POTASSIUM 4.1 MMOL/L (3.5-5.1); SODIUM 139 MMOL/L (135-145); TOTAL CARBON DIOXIDE 39.5 MMOL/L (24-32); TOTAL PROTEIN 5.8 G/DL (6.4-8.2); eGFR 31 ML/MIN
--- NOTE | 2020-07-16 07:15 | NUR ---
Patient in room PCU 3027. I have received report from MAGALY Elizabeth and had the opportunity to ask questions and assume patient care.
[2020-07-16] MEDS: K and/or MAG REPLACEMENT MC SCH ×2 (08:00→20:00)
[2020-07-16] MEDS: voritoxetine HBr tablet 5 MG TABLET PO SCH (08:00)
[2020-07-16] MEDS: amiodarone 200mg tablet PO SCH (08:54)
[2020-07-16] MEDS: pantoprazole 40mg Tablet.DR PO SCH (08:54)
[2020-07-16] MEDS: furosemide 40mg/4ml inj IV SCH ×2 (08:54→19:54)
[2020-07-16] MEDS: lactobacillus rhamnosus 10,000 MMU CELLS/CAPSULE PO SCH (08:54)
[2020-07-16] MEDS: potassium Cl 20 mEq SR tablet PO SCH (08:55)
--- NOTE | 2020-07-16 10:31 | NUR ---
Chest xray ordered for 07/17/20 @ [address] Betancourt
[2020-07-16 11:00] VITALS: BP 122/68
--- NOTE | 2020-07-16 11:21 | NUR ---
Chest tube removed. Restart Eliquis 5 mg BID.
[2020-07-16 15:00] VITALS: BP 126/71
--- NOTE | 2020-07-16 15:28 | NUR ---
Reassessment: Pt was having high output in chest tube, however as output decreased PO intake noticeably increased and tube was removed today. Per TIG WELDER recs on 07/16, continue mechanical chopped and thin liquids. Pt PO intake 75% on heart healthy/mechanical chopped diet, meeting estimated nutrient needs. Last BM 07/15, received MoM 07/13. No nutrition concerns at this time, will continue to monitor. Recs: 1) Continue heart healthy diet, mechanical soft chop food per ST recs 2) Routine bowel care 3) Scaled wt per Rx Addendum: 07/16/20 at [address] Amended: Links added. Addendum: 07/16/20 at [address] RD agree with equine intern note
[2020-07-16 18:00] VITALS: BP 128/64
--- NOTE | 2020-07-16 18:26 | NUR ---
[place] documentation: I have reviewed and agree with all interventions, assessments performed and documented by MAGALY Arteaga. [place] Medication Administration: For this medication-pass time frame, all medication were reviewed, dispensed, administered and documented per hospital policy by MAGALY Arteaga.
--- NOTE | 2020-07-16 18:39 | NUR ---
Problems reprioritized. Patient report given, questions answered & plan of care reviewed with Josie MCKENZIE. Patient stable at transfer of care.
[2020-07-16] MEDS: apixaban 2.5mg tablet PO SCH (19:55)
[2020-07-16] MEDS: Melatonin 3mg tablet PO SCH (21:00)
[2020-07-16] MEDS: temazepam 15mg capsule PO PRN (21:15)
[2020-07-16] MEDS: atorvastatin 20mg tablet PO SCH (21:15)
[2020-07-16 22:00] VITALS: BP 134/68
[2020-07-17 02:00] VITALS: BP 141/70
[2020-07-17] MEDS: diltiazem 30mg tablet PO SCH (02:00)
[2020-07-17] MEDS: albuterol 2.5 MG/3 ML nebule NEB SCH ×3 (03:10→11:33)
[2020-07-17 05:23] LABS: BASOPHILS % (AUTO) 0.4 % (0-1); EOSINOPHILS % (AUTO) 0.2 % (0-6); HEMOGLOBIN 9.4 g/dl (12.0-16.0); LYMPHOCYTES # (AUTO) 0.7 X10'3 (1.1-4.8); LYMPHOCYTES % (AUTO) 12.2 % (21-51); MEAN CORPUSCULAR HEMOGLOBIN 30.7 PG (27.0-31.0); MEAN CORPUSCULAR HGB CONC 33.4 g/dL (33.0-36.5); MEAN PLATELET VOLUME 6.2 FL (7.4-10.4); MONOCYTES # (AUTO) 0.5 X10'3 (0-0.9); NEUTROPHILS # (AUTO) 4.7 X10'3 (1.8-7.7); NEUTROPHILS % (AUTO) 78.2 % (42-75); PLATELET COUNT 266 X10'3 (140-440); RED BLOOD COUNT 3.05 X10'6 (4.20-5.60); RED CELL DISTRIBUTION WIDTH 13.3 % (11.5-14.5)
[2020-07-17 05:46] LABS: ALANINE AMINOTRANSFERASE 32 U/L (12-78); ALBUMIN/GLOBULIN RATIO 0.6 (1.1-1.5); ALKALINE PHOSPHATASE 77 IU/L (46-116); ANION GAP 0 (8-16); ASPARTATE AMINO TRANSFERASE 23 U/L (10-37); BILIRUBIN,TOTAL 0.4 MG/DL (0.1-1.0); BLOOD UREA NITROGEN 24 MG/DL (7-18); BUN/CREATININE RATIO 13.3 (6.6-38.0); CHLORIDE 100 MMOL/L (99-107); CREATININE 1.81 MG/DL (0.40-0.90); GLUCOSE 116 MG/DL (70-104); POTASSIUM 3.8 MMOL/L (3.5-5.1); SODIUM 139 MMOL/L (135-145); TOTAL CARBON DIOXIDE 38.6 MMOL/L (24-32); TOTAL PROTEIN 5.5 G/DL (6.4-8.2); eGFR 27 ML/MIN
--- NOTE | 2020-07-17 07:02 | NUR ---
Patient in room PCU 3027. I have received report from Josie MCKENZIE and had the opportunity to ask questions and assume patient care.
[2020-07-17 07:07] VITALS: BP 123/61
[2020-07-17] MEDS: K and/or MAG REPLACEMENT MC SCH (08:00)
[2020-07-17] MEDS ORDERED: diltiazem CD 120mg capsule (once-daily) PO SCH (08:00)
[2020-07-17] MEDS: apixaban 2.5mg tablet PO SCH (08:28)
[2020-07-17] MEDS: voritoxetine HBr tablet 5 MG TABLET PO SCH (08:28)
[2020-07-17] MEDS: furosemide 40mg/4ml inj IV SCH (08:28)
[2020-07-17] MEDS: amiodarone 200mg tablet PO SCH (08:29)
[2020-07-17] MEDS: pantoprazole 40mg Tablet.DR PO SCH (08:29)
[2020-07-17] MEDS: potassium Cl 20 mEq SR tablet PO SCH (08:30)
[2020-07-17] MEDS: lactobacillus rhamnosus 10,000 MMU CELLS/CAPSULE PO SCH (08:30)
--- NOTE | 2020-07-17 09:51 | NUR ---
F/u 07/17: Pt PO 75-100% avg meals improving past 3 days meeting needs. Advanced to regular texture w/ thin liquids per DISTRIBUTION OPERATIONS SUPERVISOR recs. LBM 07/15. No nutrition concerns at this time. Will continue to monitor. Recs: 1) Continue heart healthy diet; regular texture/thin liquids per ST recs 2) Routine bowel care 3) Scaled wt per Rx Addendum: 07/17/20 at [address] Amended: Links added.
[2020-07-17] MEDS ORDERED: APIX2.5T PO (10:40)
[2020-07-17 11:00] VITALS: BP 130/66
--- NOTE | 2020-07-17 15:16 | NUR ---
Pt stable for discharge per MD orders. All discharge instructions reviewed with patient and all questions answered. PIV discontimued, cannula intact. Telemetry discontinued, telemarketer supervisor notified. All belongings collected and sent with patient. New prescriptions called into pharmacy of choice. Patient wheeled to lobby by staff, picked up by family member in private vehicle.
[2020-08-02] MEDS ORDERED: NIFE-34 PO (16:52)
[2020-08-02] MEDS ORDERED: APIX5TAB3 PO (16:52)
[2020-08-02] MEDS ORDERED: CARV25TA3 PO (16:52)
[2020-08-02] MEDS ORDERED: DILT-36 PO (16:52)
[2020-08-02] MEDS ORDERED: LOSA100T57 PO (16:52)
[2020-08-02] MEDS ORDERED: POTA20TA19 PO (17:06)
[2020-08-02] MEDS ORDERED: METO50TA17 PO (17:06)
[2020-08-02] MEDS ORDERED: HYDR-3965 PO (17:06)
[2020-08-02] MEDS ORDERED: BISA10SU62 RC (17:06)
== END 2020-07-17 13:05 | disposition home health service (06) | DRG 186 ==
LOC: ER 10:52 → ED HOLD 15:36 → PCU 3S 17:48
PROVIDERS: ADMIT Internal Medicine; ATTEND Internal Medicine
PROC: 5A09357 Assistance with Respiratory Ventilation, Less than 24 Consecutive Hours, Continuous Positive Airway Pressure (ICD-10-PCS; 2020-07-05)
PROC: 0W9930Z Drainage of Right Pleural Cavity with Drainage Device, Percutaneous Approach (ICD-10-PCS; principal; 2020-07-06)
PROC: BW241ZZ Computerized Tomography (CT Scan) of Chest and Abdomen using Low Osmolar Contrast (ICD-10-PCS; 2020-07-12)
DX: J94.2 Hemothorax (principal); J96.02 Acute respiratory failure with hypercapnia; I13.0 Hypertensive heart and chronic kidney disease with heart failure and stage 1 through stage 4 chronic kidney disease, or unspecified chronic kidney disease; N17.9 Acute kidney failure, unspecified; I50.32 Chronic diastolic (congestive) heart failure; J98.19 Other pulmonary collapse; J91.8 Pleural effusion in other conditions classified elsewhere; D63.8 Anemia in other chronic diseases classified elsewhere; E11.22 Type 2 diabetes mellitus with diabetic chronic kidney disease; F41.8 Other specified anxiety disorders; E78.5 Hyperlipidemia, unspecified; F03.90 Unspecified dementia, unspecified severity, without behavioral disturbance, psychotic disturbance, mood disturbance, and anxiety; I48.0 Paroxysmal atrial fibrillation; K59.00 Constipation, unspecified; N18.30 Chronic kidney disease, stage 3 unspecified; Z77.22 Contact with and (suspected) exposure to environmental tobacco smoke (acute) (chronic); Z79.01 Long term (current) use of anticoagulants; Z79.899 Other long term (current) drug therapy; Z86.711 Personal history of pulmonary embolism
CPT/HCPCS: 32557; 36415; 36600; 71045; 71260; 80048; 80053; 82803; 82945; 83605; 83615; 83735; 83880; 83986; 84145; 84157; 84439; 84443; 84484; 85018; 85025; 87040; 87070; 87075; 87081; 87102; 89051; 92508; 92616; 93005; 94640; 94660; 94760; 96374; 97110; 97116; 97161; 97530; 99285; G0378; J0696; J1940; J3490; Q9967

== ENCOUNTER 2020-07-24 11:50 | Inpatient (IN) | payer MEDICARE ==
[~2020-07-24] VITALS: Ht 154.9 cm; Wt 46.4 kg
[~2020-07-24 11:50] MED LIST: ALEN70TA80 PO; AMIO200T61 PO; APIX2.5T PO; ATOR-2 PO; CALC200T PO; DOCU-267 PO; FURO40TA4 PO; LACT10SO PO; LACTC PO; LEVO15TA5 PO; MELA10TA PO; MIRT30TA8 PO; PANT40TA54 PO; POTA20TA19 PO; VORT5TAB PO
[2020-07-24 12:30] LABS: BASOPHILS % (AUTO) 0.2 % (0-1); EOSINOPHILS % (AUTO) 0 % (0-6); HEMATOCRIT 33.1 % (35.0-45.0); HEMOGLOBIN 10.9 g/dl (12.0-16.0); LYMPHOCYTES # (AUTO) 0.5 X10'3 (1.1-4.8); MEAN CORPUSCULAR HEMOGLOBIN 30.3 PG (27.0-31.0); MEAN CORPUSCULAR HGB CONC 32.9 g/dL (33.0-36.5); MEAN PLATELET VOLUME 6.2 FL (7.4-10.4); MONOCYTES # (AUTO) 0.6 X10'3 (0-0.9); MONOCYTES % (AUTO) 6.9 % (2-12); NEUTROPHILS % (AUTO) 87.9 % (42-75); PLATELET COUNT 384 X10'3 (140-440); RED CELL DISTRIBUTION WIDTH 13.6 % (11.5-14.5)
[2020-07-24] MEDS ORDERED: furosemide 40mg/4ml inj IV ONE (12:40)
[2020-07-24] MEDS ORDERED: diltiazem 5mg/ml 5ml inj. IV ONE ×3 (12:40→22:25)
[2020-07-24] MEDS ORDERED: furosemide 10 MG/1 ML 10ml inj IV ONE (12:40)
[2020-07-24 12:46] LABS: ALANINE AMINOTRANSFERASE 216 U/L (12-78); ALBUMIN 2.7 G/DL (3.4-5.0); ALBUMIN/GLOBULIN RATIO 0.7 (1.1-1.5); ALKALINE PHOSPHATASE 170 IU/L (46-116); ANION GAP 3 (8-16); ASPARTATE AMINO TRANSFERASE 146 U/L (10-37); BILIRUBIN,TOTAL 0.4 MG/DL (0.1-1.0); BLOOD UREA NITROGEN 43 MG/DL (7-18); BUN/CREATININE RATIO 25.1 (6.6-38.0); CALCIUM 9.3 MG/DL (8.5-10.1); CHLORIDE 98 MMOL/L (99-107); CREATININE 1.71 MG/DL (0.40-0.90); GLUCOSE 195 MG/DL (70-104); SODIUM 137 MMOL/L (135-145); TOTAL CARBON DIOXIDE 35.9 MMOL/L (24-32); TOTAL PROTEIN 6.8 G/DL (6.4-8.2); eGFR 28 ML/MIN
[2020-07-24] MEDS ORDERED: ASPI-611 PO (13:24)
[2020-07-24] MEDS ORDERED: APIX2.5T PO (13:27)
[2020-07-24] MEDS ORDERED: diltiazem-D5W 125mg/125ml 125 ML IV SCH (14:15)
[2020-07-24] MEDS ORDERED: magnesium hydroxide 30ml (MOM) UD suspension PO PRN (14:35)
[2020-07-24] MEDS: furosemide 20 MG/2 ML vial IV SCH ×3 (14:35→23:44)
[2020-07-24] MEDS ORDERED: acetaminophen 325mg tablet PO PRN ×2 (14:35)
[2020-07-24] MEDS ORDERED: mag hydrox/Alum hydrox/simeth 30ml oral suspension PO PRN (14:35)
[2020-07-24] MEDS ORDERED: ondansetron/PF 4mg/2ml inj IV PRN (14:35)
[2020-07-24] MEDS ORDERED: morphine 2 MG/ML inj. syringe IV PRN ×2 (14:35)
--- NOTE | 2020-07-24 15:14 | NUR ---
PT URINATED 300 ML URINE .DIRECTOR OF EDUCATION AT BEDSIDE .
--- NOTE | 2020-07-24 16:35 | NUR ---
notified steph pierce regarding pt hr 110-120 on pcu dosing cardiazem drip infusing at 5 mg/hr .pa okayed to titrate to 10 mg/hr .pt bp is high steph pierce aware about that .pt cardiazem drip titrated as per steph pierce's orders.
[2020-07-24] MEDS ORDERED: diltiazem CD 180mg cap (once-daily) PO ONE (17:20)
--- NOTE | 2020-07-24 17:20 | NUR ---
spoke to dr rios regarding pt hr informed that pt hr was in 110 -120 and pt bld pressure is 171/108 and i contacted steph pierce changed the iv cardizem drip to 10 mg/hr anf hr after that is 102-108 rgt now and also informed that pt recevied 40 mg of lasix when pt came to er as per md mathew the dose of lasix rgt now nad give cardiazem cd 180 mg cap 1 time dose rgt now and then half an hour later d/c the cardizem drip .will follow the orders.
[2020-07-24 18:00] VITALS: BP 173/97
--- NOTE | 2020-07-24 18:30 | NUR ---
Patient in room MED 313. I have received report from Kane MCKENZIE from ER and had the opportunity to ask questions and assume patient care.
[2020-07-24] MEDS: apixaban 2.5mg tablet PO SCH (20:18)
[2020-07-24] MEDS: Melatonin 3mg tablet PO SCH (20:18)
[2020-07-24] MEDS: mirtazapine 15mg tablet PO SCH (20:19)
[2020-07-24] MEDS: docusate sod 100mg capsule PO SCH (20:19)
[2020-07-24 22:00] VITALS: BP 179/103
--- NOTE | 2020-07-24 22:24 | NUR ---
Spoke to Dr. Venegas at 2220 regarding patietn continual heart rate in the 110-120s and her blood pressure above 170/90 s. ordered 1 time dose of Cardizem 10 mg IV.
--- NOTE | 2020-07-24 22:54 | NUR ---
aware of sustaining hypertension
[2020-07-25] VITALS (11 sets, daily range): BP systolic 119–184; BP diastolic 57–100
[2020-07-25] MEDS ORDERED: diltiazem-D5W 125mg/125ml 125 ML IV SCH (00:50)
[2020-07-25 05:49] LABS: BASOPHILS % (AUTO) 0.3 % (0-1); EOSINOPHILS % (AUTO) 0.1 % (0-6); HEMOGLOBIN 10.7 g/dl (12.0-16.0); LYMPHOCYTES # (AUTO) 0.4 X10'3 (1.1-4.8); LYMPHOCYTES % (AUTO) 5.2 % (21-51); MEAN CORPUSCULAR HEMOGLOBIN 30.5 PG (27.0-31.0); MEAN CORPUSCULAR HGB CONC 33.4 g/dL (33.0-36.5); MEAN CORPUSCULAR VOLUME 91.1 FL (78-98); MEAN PLATELET VOLUME 6.1 FL (7.4-10.4); MONOCYTES # (AUTO) 0.6 X10'3 (0-0.9); MONOCYTES % (AUTO) 8.5 % (2-12); NEUTROPHILS # (AUTO) 6.5 X10'3 (1.8-7.7); NEUTROPHILS % (AUTO) 85.9 % (42-75); PLATELET COUNT 356 X10'3 (140-440); RED BLOOD COUNT 3.51 X10'6 (4.20-5.60); RED CELL DISTRIBUTION WIDTH 13.8 % (11.5-14.5); WHITE BLOOD COUNT 7.5 X10'3 (4.5-11.0)
[2020-07-25 06:13] LABS: ALANINE AMINOTRANSFERASE 189 U/L (12-78); ALBUMIN 2.6 G/DL (3.4-5.0); ALBUMIN/GLOBULIN RATIO 0.7 (1.1-1.5); ALKALINE PHOSPHATASE 159 IU/L (46-116); ANION GAP 2 (8-16); ASPARTATE AMINO TRANSFERASE 81 U/L (10-37); BILIRUBIN,TOTAL 0.4 MG/DL (0.1-1.0); BLOOD UREA NITROGEN 38 MG/DL (7-18); BUN/CREATININE RATIO 23.5 (6.6-38.0); CALCIUM 8.9 MG/DL (8.5-10.1); CHLORIDE 102 MMOL/L (99-107); CREATININE 1.62 MG/DL (0.40-0.90); GLUCOSE 143 MG/DL (70-104); POTASSIUM 4.2 MMOL/L (3.5-5.1); SODIUM 143 MMOL/L (135-145); TOTAL PROTEIN 6.5 G/DL (6.4-8.2); eGFR 30 ML/MIN
--- NOTE | 2020-07-25 07:45 | NUR ---
Patient in room MED 313. I have received report from benjamin alcazar and had the opportunity to ask questions and assume patient care.
[2020-07-25] MEDS: atorvastatin 20mg tablet PO SCH (08:32)
[2020-07-25] MEDS: furosemide 20 MG/2 ML vial IV SCH ×3 (08:32→23:23)
[2020-07-25] MEDS: aspirin 81mg tab.chew PO SCH (08:33)
[2020-07-25] MEDS: lactobacillus rhamnosus 10,000 MMU CELLS/CAPSULE PO SCH (08:33)
[2020-07-25] MEDS: pantoprazole 40mg Tablet.DR PO SCH (08:33)
[2020-07-25] MEDS: lactulose 20gm/30ml cup PO SCH (08:34)
[2020-07-25] MEDS: metoprolol succinate 25mg (24-HOUR) SR. Tablet PO SCH (08:34)
[2020-07-25] MEDS: apixaban 2.5mg tablet PO SCH ×2 (08:34→20:31)
[2020-07-25] MEDS: docusate sod 100mg capsule PO SCH ×2 (08:34→20:31)
[2020-07-25] MEDS: amiodarone 200mg tablet PO SCH (09:39)
[2020-07-25] MEDS: voritoxetine HBr tablet 5 MG TABLET PO SCH (14:57)
[2020-07-25] MEDS ORDERED: ondansetron 4mg rapidly disintigrating tab PO PRN (16:00)
--- NOTE | 2020-07-25 18:25 | NUR ---
Problems reprioritized. Patient report given, questions answered & plan of care reviewed with benjamin Ennis.
--- NOTE | 2020-07-25 18:34 | NUR ---
Patient in room MED 313. I have received report from Marjorie MCKENZIE and had the opportunity to ask questions and assume patient care.
[2020-07-25] MEDS ORDERED: furosemide 40mg/4ml inj IV ONE (19:15)
[2020-07-25] MEDS: Melatonin 3mg tablet PO SCH (20:31)
[2020-07-25] MEDS: mirtazapine 15mg tablet PO SCH (20:31)
[2020-07-26 02:00] VITALS: BP 152/78
[2020-07-26 06:00] VITALS: BP 166/97
--- NOTE | 2020-07-26 06:28 | NUR ---
Patient in room MED 313. I have received report from MAGALY Pedro and had the opportunity to ask questions and assume patient care.
[2020-07-26 06:31] LABS: BASOPHILS % (AUTO) 0.5 % (0-1); EOSINOPHILS % (AUTO) 0.4 % (0-6); HEMATOCRIT 30.2 % (35.0-45.0); HEMOGLOBIN 10.1 g/dl (12.0-16.0); LYMPHOCYTES # (AUTO) 0.5 X10'3 (1.1-4.8); LYMPHOCYTES % (AUTO) 7.1 % (21-51); MEAN CORPUSCULAR HEMOGLOBIN 30.8 PG (27.0-31.0); MEAN CORPUSCULAR HGB CONC 33.3 g/dL (33.0-36.5); MEAN CORPUSCULAR VOLUME 92.4 FL (78-98); MEAN PLATELET VOLUME 6.1 FL (7.4-10.4); MONOCYTES # (AUTO) 0.6 X10'3 (0-0.9); MONOCYTES % (AUTO) 9.5 % (2-12); NEUTROPHILS # (AUTO) 5.5 X10'3 (1.8-7.7); NEUTROPHILS % (AUTO) 82.5 % (42-75); PLATELET COUNT 302 X10'3 (140-440); RED BLOOD COUNT 3.27 X10'6 (4.20-5.60); RED CELL DISTRIBUTION WIDTH 13.7 % (11.5-14.5); WHITE BLOOD COUNT 6.6 X10'3 (4.5-11.0)
--- NOTE | 2020-07-26 06:34 | NUR ---
Problems reprioritized. Patient report given, questions answered & plan of care reviewed with Marjorie MCKENZIE.
[2020-07-26 06:36] LABS: ALBUMIN 2.3 G/DL (3.4-5.0); ANION GAP 0 (8-16); BLOOD UREA NITROGEN 33 MG/DL (7-18); BUN/CREATININE RATIO 21.3 (6.6-38.0); CALCIUM 8.3 MG/DL (8.5-10.1); CHLORIDE 102 MMOL/L (99-107); CREATININE 1.55 MG/DL (0.40-0.90); GLUCOSE 117 MG/DL (70-104); POTASSIUM 4.2 MMOL/L (3.5-5.1); SODIUM 143 MMOL/L (135-145); eGFR 32 ML/MIN
[2020-07-26 06:43] LABS: TOTAL CARBON DIOXIDE 40.8 MMOL/L (24-32)
--- NOTE | 2020-07-26 07:00 | NUR ---
Dr. Alvarado paged with of critical lab,CO2=40.8,no order taken
[2020-07-26 08:21] LABS: ALANINE AMINOTRANSFERASE 179 U/L (12-78); ALBUMIN/GLOBULIN RATIO 0.6 (1.1-1.5); ALKALINE PHOSPHATASE 138 IU/L (46-116); ASPARTATE AMINO TRANSFERASE 63 U/L (10-37); BILIRUBIN,DIRECT 0.1 MG/DL (0-0.3); BILIRUBIN,TOTAL 0.3 MG/DL (0.1-1.0); TOTAL PROTEIN 5.9 G/DL (6.4-8.2)
[2020-07-26] MEDS: aspirin 81mg tab.chew PO SCH (08:25)
[2020-07-26] MEDS: pantoprazole 40mg Tablet.DR PO SCH (08:25)
[2020-07-26] MEDS: docusate sod 100mg capsule PO SCH ×2 (08:25→21:12)
[2020-07-26] MEDS: furosemide 20 MG/2 ML vial IV SCH ×2 (08:25→16:00)
[2020-07-26] MEDS: metoprolol succinate 25mg (24-HOUR) SR. Tablet PO SCH (08:26)
[2020-07-26] MEDS: atorvastatin 20mg tablet PO SCH (08:26)
[2020-07-26] MEDS: amiodarone 200mg tablet PO SCH (08:26)
[2020-07-26] MEDS: lactobacillus rhamnosus 10,000 MMU CELLS/CAPSULE PO SCH (08:26)
[2020-07-26] MEDS: voritoxetine HBr tablet 5 MG TABLET PO SCH (08:26)
[2020-07-26] MEDS: apixaban 2.5mg tablet PO SCH ×2 (08:26→21:12)
[2020-07-26] MEDS: lactulose 20gm/30ml cup PO SCH (08:36)
[2020-07-26 10:00] VITALS: BP 159/79
[2020-07-26 14:00] VITALS: BP 159/78
[2020-07-26 18:00] VITALS: BP 146/80
--- NOTE | 2020-07-26 18:00 | NUR ---
Patient in room MED 313. I have received report from Marjorie MCKENZIE and had the opportunity to ask questions and assume patient care.
--- NOTE | 2020-07-26 18:30 | NUR ---
Problems reprioritized. Patient report given, questions answered & plan of care reviewed with .MAGALY WAKEFIELD
--- NOTE | 2020-07-26 18:45 | NUR ---
PAGER ID: [phone] MESSAGE: [phone] pt Waqas. Please address code status, Pt is A&O x4, has a POLST signed recently on 06/15/2020 for limited code status. Has order in [email or web address] for DNR. Thank you [phone]
[2020-07-26] MEDS: Melatonin 3mg tablet PO SCH (21:12)
[2020-07-26] MEDS: mirtazapine 15mg tablet PO SCH (21:12)
[2020-07-26 22:00] VITALS: BP 151/80
[2020-07-27] VITALS (12 sets, daily range): BP systolic 94–153; BP diastolic 7–84
[2020-07-27] MEDS: furosemide 20 MG/2 ML vial IV SCH ×2 (00:21→08:07)
[2020-07-27 06:03] LABS: BASOPHILS % (AUTO) 0.4 % (0-1); EOSINOPHILS % (AUTO) 0.1 % (0-6); HEMATOCRIT 32.1 % (35.0-45.0); HEMOGLOBIN 10.7 g/dl (12.0-16.0); LYMPHOCYTES # (AUTO) 0.6 X10'3 (1.1-4.8); LYMPHOCYTES % (AUTO) 7.9 % (21-51); MEAN CORPUSCULAR HGB CONC 33.4 g/dL (33.0-36.5); MEAN CORPUSCULAR VOLUME 92.9 FL (78-98); MEAN PLATELET VOLUME 6.3 FL (7.4-10.4); MONOCYTES # (AUTO) 0.6 X10'3 (0-0.9); MONOCYTES % (AUTO) 8.4 % (2-12); NEUTROPHILS # (AUTO) 6.1 X10'3 (1.8-7.7); NEUTROPHILS % (AUTO) 83.2 % (42-75); PLATELET COUNT 301 X10'3 (140-440); RED BLOOD COUNT 3.45 X10'6 (4.20-5.60); RED CELL DISTRIBUTION WIDTH 13.8 % (11.5-14.5); WHITE BLOOD COUNT 7.3 X10'3 (4.5-11.0)
[2020-07-27 06:24] LABS: ALBUMIN 2.3 G/DL (3.4-5.0); ANION GAP 1 (8-16); BLOOD UREA NITROGEN 36 MG/DL (7-18); BUN/CREATININE RATIO 18.8 (6.6-38.0); CALCIUM 8.2 MG/DL (8.5-10.1); CHLORIDE 100 MMOL/L (99-107); CREATININE 1.91 MG/DL (0.40-0.90); GLUCOSE 113 MG/DL (70-104); POTASSIUM 4.4 MMOL/L (3.5-5.1); SODIUM 141 MMOL/L (135-145); TOTAL CARBON DIOXIDE 39.8 MMOL/L (24-32); eGFR 25 ML/MIN
[2020-07-27] MEDS: pantoprazole 40mg Tablet.DR PO SCH (08:04)
[2020-07-27] MEDS: apixaban 2.5mg tablet PO SCH ×2 (08:04→20:47)
[2020-07-27] MEDS: amiodarone 200mg tablet PO SCH (08:04)
[2020-07-27] MEDS: diltiazem CD 120mg capsule (once-daily) PO SCH (08:04)
[2020-07-27] MEDS: lactobacillus rhamnosus 10,000 MMU CELLS/CAPSULE PO SCH (08:05)
[2020-07-27] MEDS: voritoxetine HBr tablet 5 MG TABLET PO SCH (08:05)
[2020-07-27] MEDS: docusate sod 100mg capsule PO SCH ×2 (08:05→20:47)
[2020-07-27] MEDS: HYDROcodone/acetaminophen 5mg/325mg tablet PO PRN ×2 (08:05→16:12)
[2020-07-27] MEDS: aspirin 81mg tab.chew PO SCH (08:05)
[2020-07-27] MEDS: metoprolol succinate 25mg (24-HOUR) SR. Tablet PO SCH (08:06)
[2020-07-27] MEDS: lactulose 20gm/30ml cup PO SCH (08:06)
[2020-07-27] MEDS: atorvastatin 20mg tablet PO SCH (08:06)
[2020-07-27] MEDS ORDERED: furosemide 20 MG/2 ML vial IV ONE (13:45)
--- NOTE | 2020-07-27 18:00 | NUR ---
Patient in room MED 313. I have received report from JAVI RN and had the opportunity to ask questions and assume patient care.
[2020-07-27] MEDS ORDERED: furosemide 40mg/4ml inj IV SCH (20:00)
[2020-07-27] MEDS: potassium Cl 20 mEq SR tablet PO SCH (20:44)
[2020-07-27] MEDS: mirtazapine 15mg tablet PO SCH (20:48)
[2020-07-27] MEDS: Melatonin 3mg tablet PO SCH (20:48)
[2020-07-28 02:00] VITALS: BP 149/80
[2020-07-28] MEDS: HYDROcodone/acetaminophen 5mg/325mg tablet PO PRN (02:22)
[2020-07-28 05:41] LABS: BASOPHILS % (AUTO) 0.3 % (0-1); EOSINOPHILS % (AUTO) 0.1 % (0-6); HEMATOCRIT 34.4 % (35.0-45.0); HEMOGLOBIN 11.1 g/dl (12.0-16.0); LYMPHOCYTES # (AUTO) 0.7 X10'3 (1.1-4.8); LYMPHOCYTES % (AUTO) 7.8 % (21-51); MEAN CORPUSCULAR HEMOGLOBIN 29.8 PG (27.0-31.0); MEAN CORPUSCULAR HGB CONC 32.3 g/dL (33.0-36.5); MEAN CORPUSCULAR VOLUME 92.2 FL (78-98); MEAN PLATELET VOLUME 6.4 FL (7.4-10.4); MONOCYTES # (AUTO) 0.7 X10'3 (0-0.9); MONOCYTES % (AUTO) 8.5 % (2-12); NEUTROPHILS # (AUTO) 7.3 X10'3 (1.8-7.7); NEUTROPHILS % (AUTO) 83.3 % (42-75); PLATELET COUNT 347 X10'3 (140-440); RED BLOOD COUNT 3.73 X10'6 (4.20-5.60); WHITE BLOOD COUNT 8.7 X10'3 (4.5-11.0)
[2020-07-28 06:00] VITALS: BP 165/92
[2020-07-28 06:05] LABS: ALBUMIN 2.4 G/DL (3.4-5.0); ANION GAP 1 (8-16); BLOOD UREA NITROGEN 45 MG/DL (7-18); BUN/CREATININE RATIO 17.6 (6.6-38.0); CALCIUM 8.7 MG/DL (8.5-10.1); CHLORIDE 100 MMOL/L (99-107); CREATININE 2.56 MG/DL (0.40-0.90); GLUCOSE 121 MG/DL (70-104); POTASSIUM 5.3 MMOL/L (3.5-5.1); SODIUM 140 MMOL/L (135-145); TOTAL CARBON DIOXIDE 38.9 MMOL/L (24-32); eGFR 18 ML/MIN
--- NOTE | 2020-07-28 06:29 | NUR ---
Problems reprioritized. Patient report given, questions answered & plan of care reviewed with PAT RN.
--- NOTE | 2020-07-28 07:03 | NUR ---
Patient in room MED 313. I have received report from MAGALY WAKEFIELD and had the opportunity to ask questions and assume patient care.
[2020-07-28] MEDS: atorvastatin 20mg tablet PO SCH (08:00)
[2020-07-28] MEDS ORDERED: furosemide 40mg tablet PO SCH (08:00)
[2020-07-28] MEDS: lactobacillus rhamnosus 10,000 MMU CELLS/CAPSULE PO SCH (08:28)
[2020-07-28] MEDS: lactulose 20gm/30ml cup PO SCH (08:28)
[2020-07-28] MEDS: amiodarone 200mg tablet PO SCH (08:28)
[2020-07-28] MEDS: aspirin 81mg tab.chew PO SCH (08:28)
[2020-07-28] MEDS: apixaban 2.5mg tablet PO SCH (08:28)
[2020-07-28] MEDS: docusate sod 100mg capsule PO SCH (08:28)
[2020-07-28] MEDS: diltiazem CD 120mg capsule (once-daily) PO SCH (08:29)
[2020-07-28] MEDS: metoprolol succinate 25mg (24-HOUR) SR. Tablet PO SCH (08:29)
[2020-07-28] MEDS: pantoprazole 40mg Tablet.DR PO SCH (08:29)
[2020-07-28] MEDS: potassium Cl 20 mEq SR tablet PO SCH (08:30)
[2020-07-28] MEDS: voritoxetine HBr tablet 5 MG TABLET PO SCH (08:41)
[2020-07-28 11:00] VITALS: BP 119/70
[2020-08-02] MEDS ORDERED: CARV25TA3 PO (16:52)
[2020-08-02] MEDS ORDERED: DILT-36 PO (16:52)
[2020-08-02] MEDS ORDERED: APIX5TAB3 PO (16:52)
[2020-08-02] MEDS ORDERED: NIFE-34 PO (16:52)
[2020-08-02] MEDS ORDERED: LOSA100T57 PO (16:52)
[2020-08-02] MEDS ORDERED: METO50TA17 PO (17:06)
[2020-08-02] MEDS ORDERED: HYDR-3965 PO (17:06)
[2020-08-02] MEDS ORDERED: BISA10SU62 RC (17:06)
[2020-08-02] MEDS ORDERED: POTA20TA19 PO (17:06)
== END 2020-07-28 12:00 | DRG 291 ==
LOC: ER 11:50 → ED HOLD 14:31 → CANBEDREQ 14:45 → MED 3N 19:00
PROVIDERS: ADMIT Internal Medicine; ATTEND Internal Medicine
PROC: 0W9B3ZZ Drainage of Left Pleural Cavity, Percutaneous Approach (ICD-10-PCS; principal; 2020-07-27)
DX: I13.0 Hypertensive heart and chronic kidney disease with heart failure and stage 1 through stage 4 chronic kidney disease, or unspecified chronic kidney disease (principal); J96.21 Acute and chronic respiratory failure with hypoxia; N17.0 Acute kidney failure with tubular necrosis; I50.32 Chronic diastolic (congestive) heart failure; Q21.1 Atrial septal defect; J91.8 Pleural effusion in other conditions classified elsewhere; I48.0 Paroxysmal atrial fibrillation; Z66 Do not resuscitate; N18.30 Chronic kidney disease, stage 3 unspecified; D64.9 Anemia, unspecified; E11.22 Type 2 diabetes mellitus with diabetic chronic kidney disease; E78.5 Hyperlipidemia, unspecified; W06.XXXA Fall from bed, initial encounter; J44.9 Chronic obstructive pulmonary disease, unspecified; D63.8 Anemia in other chronic diseases classified elsewhere; I25.10 Atherosclerotic heart disease of native coronary artery without angina pectoris; I50.813 Acute on chronic right heart failure; R91.8 Other nonspecific abnormal finding of lung field; G47.00 Insomnia, unspecified; R74.01 Elevation of levels of liver transaminase levels; R74.8 Abnormal levels of other serum enzymes; Z79.01 Long term (current) use of anticoagulants; Z79.82 Long term (current) use of aspirin; Z79.899 Other long term (current) drug therapy; Y93.89 Activity, other specified; Y92.098 Other place in other non-institutional residence as the place of occurrence of the external cause; Y99.8 Other external cause status; Z99.81 Dependence on supplemental oxygen; T50.2X5A Adverse effect of carbonic-anhydrase inhibitors, benzothiadiazides and other diuretics, initial encounter; Y92.230 Patient room in hospital as the place of occurrence of the external cause
CPT/HCPCS: 32555; 36415; 71045; 76700; 80048; 80053; 80076; 83880; 84484; 85025; 85610; 87081; 93005; 93306; 96374; 96375; 97110; 97116; 97161; 97530; 99285; G0378; J1940; J3490